=== PATIENT | male | born 1965 | race Caucasian/White ===

== ENCOUNTER 2016-08-24 07:48 | Inpatient (IN) | payer MEDICAID ==
[~2016-08-24] VITALS: Ht 177.8 cm; Wt 172.0 kg
[~2016-08-24 07:48] MED LIST: ASPI81TA10; ATEN50TA OR; CEPH-37 PO; FAMO-12; FURO20TA3; FURO40TA OR; GABA300C8 PO; GEMF600T3; GLIP2.5T28 PO; INSLANTI; INSUINJ; LOSA100T27; METF-316 OR; NOR10T PO; POTA8TAB2
[2016-08-24 09:03] LABS: Basophils # (auto) 0 uL; Basophils % (auto) 0.2 % (0.0-2.0); Eosinophils # (auto) 0.1 uL; Eosinophils % (auto) 0.9 % (0.0-7.0); Hematocrit 41.2 % (41.0-53.0); Hemoglobin 13.1 g/dL (13.5-17.5); Lymphocytes # (auto) 1.9 uL; Lymphocytes % (auto) 15.7 % (10.0-50.0); Mean Corpuscular Hemoglobin 27.2 pg (28.0-32.0); Mean Corpuscular Hgb Conc. 31.8 g/dL (32.0-36.0); Mean Corpuscular Volume 85.7 fL (80.0-100.0); Mean Platelet Volume 10.3 fL (7.4-10.4); Monocytes # (auto) 0.8 uL; Monocytes % (auto) 6.3 % (0.0-12.0); Neutrophils # (auto) 9.4 uL; Neutrophils % (auto) 76.9 % (37.0-80.0); Platelet Count (auto) 223 10^3/uL (140-450); White Blood Cell 12.3 10^3/uL (4.4-10.8)
[2016-08-24] MEDS ORDERED: SODIUM CHLORIDE 0.9% 250 ML IV ONE (09:10)
[2016-08-24] MEDS ORDERED: PROMETHAZINE HCL 25 MG/ML 1ML IV ONE (09:15)
[2016-08-24] MEDS ORDERED: NALBUPHINE HCL 10 MG/1ml INJECTION IV ONE (09:15)
[2016-08-24 09:24] LABS: Albumin 2.9 g/dL (3.4-5.0); BUN/Creatinine Ratio 20.6; Calcium 8.7 mg/dL (8.5-10.1); Magnesium 2.1 mg/dL (1.6-2.6); Potassium 4.3 mmol/L (3.5-5.1)
[2016-08-24 09:28] LABS: Bilirubin, Total 0.4 mg/dL (0.2-1.0); Total Protein 6.8 g/dL (6.4-8.2)
[2016-08-24] MEDS ORDERED: SODIUM BICARBONATE 8.4 % INJ 50ML VIAL IV ONE ×3 (09:45→10:00)
[2016-08-24 09:47] LABS: Urine RBC None Seen /hpf (0 - 3)
[2016-08-24 10:10] LABS: Urine Bilirubin Negative (Negative); Urine Blood Negative /uL (Negative); Urine Color Yellow (Yellow); Urine Ketone Negative (Negative); Urine Nitrite Negative (Negative); Urine Urobilinogen Normal (Negative); Urine pH 5.5 (5.0-8.0)
[2016-08-24 10:15] LABS: Urine Glucose 4+ mg/dL (Normal)
[2016-08-24 10:48] LABS: INR 0.99 (0.9-1.15); Prothrombin Time 10.2 sec (9.37-12.3)
[2016-08-24 11:00] LABS: B-Type Natriuretic Peptide 29.21 pg/mL (0-100)
[2016-08-24 11:04] LABS: Temperature: 22.7 C (20.0-25.0)
[2016-08-24] MEDS ORDERED: SODIUM CHLORIDE 0.9% 1,000 ML IV ONE (11:49)
[2016-08-24] MEDS ORDERED: GABAPENTIN 300 MG CAP PO ONE (12:00)
[2016-08-24] MEDS ORDERED: InsuLIN REG 1unit/0.01ml Soln (100units/ml) IV ONE (12:00)
[2016-08-24] MEDS ORDERED: DEXTROSE (50%) 50ML SYRG IV PRN (12:45)
[2016-08-24] MEDS ORDERED: cefTRIAXone 1GM/50ML D5W 50 ML IV ONE (12:45)
[2016-08-24] MEDS ORDERED: MORPHINE SULF INJ 2 MG/ML SYRINGE 1ML IV PRN ×2 (13:00)
[2016-08-24] MEDS ORDERED: ONDANSETRON HCL 4 MG/2 ML VIAL IV PRN (13:00)
[2016-08-24] MEDS ORDERED: ACETAMINOPHEN 325 MG TAB PO PRN (13:00)
[2016-08-24] MEDS ORDERED: NITROGLYCERIN 0.4 MG SL TAB SL PRN ×2 (13:00)
[2016-08-24] MEDS ORDERED: LORazepam 0.5 MG TAB PO PRN (13:00)
[2016-08-24] MEDS ORDERED: ZOLPIDEM TARTRATE 5 MG TAB PO PRN (13:00)
[2016-08-24] MEDS ORDERED: DOCUSATE SOD 100 MG CAP PO ONE (13:15)
[2016-08-24] MEDS ORDERED: GEMFIBROZIL 600 MG TAB PO ONE (13:15)
[2016-08-24] MEDS ORDERED: ASPirin-EC 81 mg tab PO ONE (13:15)
[2016-08-24] MEDS ORDERED: FUROSEMIDE 40 MG TAB PO ONE (13:15)
[2016-08-24] MEDS ORDERED: ATENOLOL 25 MG TAB PO ONE (13:15)
[2016-08-24] MEDS ORDERED: CLOPIDOGREL BISULFATE 75 MG TAB PO ONE (13:15)
[2016-08-24] MEDS ORDERED: glipiZIDE 5 MG TAB PO ONE (13:15)
[2016-08-24] MEDS: SODIUM CHLOR 0.9% PF (SALINE LOCK) 10ML VIAL IV SCH ×2 (13:41→21:37)
[2016-08-24] MEDS: CLINDAMYCIN 300MG IV 50 ML IV SCH ×2 (13:52→21:37)
[2016-08-24 14:52] VITALS: BP 150/78
[2016-08-24 16:48] VITALS: BP 130/75
[2016-08-24] MEDS: ACCU-CHEK COMFORT CURVE STRIP VI SCH ×2 (17:46→21:46)
[2016-08-24] MEDS: InsuLIN REG 1unit/0.01ml Soln (100units/ml) SC SCH ×2 (18:10→21:17)
[2016-08-24 20:00] VITALS: BP 146/92
[2016-08-24] MEDS: INSULIN DETEMIR(LEVEMIR) 1unit/0.01ml Soln (100units/ml) SC SCH (21:21)
[2016-08-24 21:35] VITALS: BP 127/75
[2016-08-24] MEDS: ATORVASTATIN 20 MG TAB PO SCH (21:37)
[2016-08-24] MEDS: ATENOLOL 25 MG TAB PO SCH (21:38)
[2016-08-24] MEDS: GABAPENTIN 300 MG CAP PO SCH (21:38)
[2016-08-24] MEDS: GEMFIBROZIL 600 MG TAB PO SCH (21:39)
[2016-08-24] MEDS ORDERED: ENALAPRIL MALEATE 2.5 MG TAB PO SCH (22:00)
[2016-08-24] MEDS: HYDROcodone-ACET 10/325MG TAB PO PRN (22:45)
[2016-08-25] VITALS (7 sets, daily range): BP systolic 102–144; BP diastolic 66–78
[2016-08-25 06:25] LABS: Basophils # (auto) 0 uL; Basophils % (auto) 0.4 % (0.0-2.0); Eosinophils # (auto) 0.2 uL; Eosinophils % (auto) 1.9 % (0.0-7.0); Hematocrit 41.4 % (41.0-53.0); Hemoglobin 13.5 g/dL (13.5-17.5); Lymphocytes # (auto) 2.2 uL; Lymphocytes % (auto) 20.7 % (10.0-50.0); Mean Corpuscular Hemoglobin 27.4 pg (28.0-32.0); Mean Corpuscular Hgb Conc. 32.5 g/dL (32.0-36.0); Mean Corpuscular Volume 84.4 fL (80.0-100.0); Monocytes # (auto) 0.9 uL; Monocytes % (auto) 7.9 % (0.0-12.0); Neutrophils # (auto) 7.5 uL; Neutrophils % (auto) 69.1 % (37.0-80.0); Platelet Count (auto) 236 10^3/uL (140-450); White Blood Cell 10.8 10^3/uL (4.4-10.8)
[2016-08-25] MEDS: CLINDAMYCIN 300MG IV 50 ML IV SCH ×3 (06:38→21:32)
[2016-08-25] MEDS: SODIUM CHLOR 0.9% PF (SALINE LOCK) 10ML VIAL IV SCH ×3 (06:39→21:54)
[2016-08-25] MEDS: glipiZIDE 5 MG TAB PO SCH (06:42)
[2016-08-25] MEDS: HYDROcodone-ACET 10/325MG TAB PO PRN ×3 (06:44→20:46)
[2016-08-25] MEDS: InsuLIN REG 1unit/0.01ml Soln (100units/ml) SC SCH ×4 (06:52→22:15)
[2016-08-25 06:53] LABS: Potassium 4.1 mmol/L (3.5-5.1)
[2016-08-25] MEDS: INSULIN DETEMIR(LEVEMIR) 1unit/0.01ml Soln (100units/ml) SC SCH ×2 (06:58→22:14)
[2016-08-25] MEDS: ACCU-CHEK COMFORT CURVE STRIP VI SCH ×4 (06:58→21:59)
[2016-08-25 07:03] LABS: Albumin 2.7 g/dL (3.4-5.0); BUN/Creatinine Ratio 18.6; Calcium 8.4 mg/dL (8.5-10.1); Magnesium 2.2 mg/dL (1.6-2.6)
[2016-08-25 07:06] LABS: Bilirubin, Total 0.6 mg/dL (0.2-1.0); Total Protein 6.9 g/dL (6.4-8.2)
[2016-08-25] MEDS: cefTRIAXone 1GM/50ML D5W 50 ML IV SCH (10:45)
[2016-08-25] MEDS: GEMFIBROZIL 600 MG TAB PO SCH ×2 (10:45→21:31)
[2016-08-25] MEDS: GABAPENTIN 300 MG CAP PO SCH ×2 (10:46→21:31)
[2016-08-25] MEDS: DOCUSATE SOD 100 MG CAP PO SCH (10:46)
[2016-08-25] MEDS: LOSARTAN POTASSIUM 50 MG TAB PO SCH (10:46)
[2016-08-25] MEDS: POTASSIUM CHLORIDE 8 MEQ TAB PO SCH (10:46)
[2016-08-25] MEDS: ASPirin-EC 81 mg tab PO SCH (10:47)
[2016-08-25] MEDS: ATENOLOL 25 MG TAB PO SCH ×2 (10:47→21:59)
[2016-08-25] MEDS: FUROSEMIDE 40 MG TAB PO SCH (10:47)
[2016-08-25] MEDS: CLOPIDOGREL BISULFATE 75 MG TAB PO SCH (10:47)
[2016-08-25] MEDS: ATORVASTATIN 20 MG TAB PO SCH (21:32)
[2016-08-26] VITALS (10 sets, daily range): BP systolic 0–154; BP diastolic 0–81
[2016-08-26] MEDS: CLINDAMYCIN 300MG IV 50 ML IV SCH ×3 (05:06→21:18)
[2016-08-26] MEDS: SODIUM CHLOR 0.9% PF (SALINE LOCK) 10ML VIAL IV SCH ×3 (05:06→21:18)
[2016-08-26] MEDS: ACCU-CHEK COMFORT CURVE STRIP VI SCH ×4 (06:01→23:07)
[2016-08-26] MEDS: glipiZIDE 5 MG TAB PO SCH (06:09)
[2016-08-26] MEDS: INSULIN DETEMIR(LEVEMIR) 1unit/0.01ml Soln (100units/ml) SC SCH ×2 (06:28→23:18)
[2016-08-26] MEDS: InsuLIN REG 1unit/0.01ml Soln (100units/ml) SC SCH ×4 (06:28→23:19)
[2016-08-26] MEDS ORDERED: fentaNYL CITRATE 100 MCG/2 ML VL ONE (08:23)
[2016-08-26] MEDS ORDERED: MIDAZOLAM HCL 1MG/1ML-2 ML VIAL ONE (08:23)
[2016-08-26] MEDS ORDERED: SODIUM CHL 0.9% 0 ML ONE (08:24)
[2016-08-26] MEDS ORDERED: ANGIOMAX 250 MG VIAL IV ONE (08:24)
[2016-08-26] MEDS ORDERED: IOHEXOL 350 MG/ML 100ML IJ ONE (08:26)
[2016-08-26] MEDS ORDERED: LIDOCAINE 2%HCL (LOCAL ANESTH.) INJ 20ML MDV ONE (08:26)
[2016-08-26] MEDS: GABAPENTIN 300 MG CAP PO SCH ×2 (12:23→21:18)
[2016-08-26] MEDS: LOSARTAN POTASSIUM 50 MG TAB PO SCH (12:23)
[2016-08-26] MEDS: POTASSIUM CHLORIDE 8 MEQ TAB PO SCH (12:23)
[2016-08-26] MEDS: ASPirin-EC 81 mg tab PO SCH (12:23)
[2016-08-26] MEDS: cefTRIAXone 1GM/50ML D5W 50 ML IV SCH (12:23)
[2016-08-26] MEDS: CLOPIDOGREL BISULFATE 75 MG TAB PO SCH (12:24)
[2016-08-26] MEDS: DOCUSATE SOD 100 MG CAP PO SCH (12:24)
[2016-08-26] MEDS: FUROSEMIDE 40 MG TAB PO SCH (12:24)
[2016-08-26] MEDS: GEMFIBROZIL 600 MG TAB PO SCH ×2 (12:24→21:17)
[2016-08-26] MEDS: ATENOLOL 25 MG TAB PO SCH ×2 (12:24→21:18)
[2016-08-26] MEDS ORDERED: MUPIROCIN 2% OINT 22GM TOP ONE (14:45)
[2016-08-26] MEDS ORDERED: INSULIN DETEMIR(LEVEMIR) 1unit/0.01ml Soln (100units/ml) SC ONE (18:00)
[2016-08-26] MEDS ORDERED: InsuLIN REG 1unit/0.01ml Soln (100units/ml) IV ONE (18:00)
[2016-08-26] MEDS ORDERED: DEXTROSE (50%) 50ML SYRG IV PRN (19:45)
[2016-08-26] MEDS: HYDROcodone-ACET 10/325MG TAB PO PRN (20:02)
[2016-08-26] MEDS: SODIUM CHLORIDE 0.9% 1,000 ML IV SCH (21:17)
[2016-08-26] MEDS: ATORVASTATIN 20 MG TAB PO SCH (21:18)
[2016-08-26] MEDS: MUPIROCIN 2% OINT 22GM TOP SCH (23:19)
[2016-08-27] VITALS (7 sets, daily range): BP systolic 78–138; BP diastolic 36–76
[2016-08-27] MEDS: SODIUM CHLOR 0.9% PF (SALINE LOCK) 10ML VIAL IV SCH ×3 (05:49→21:29)
[2016-08-27] MEDS: CLINDAMYCIN 300MG IV 50 ML IV SCH ×3 (05:50→21:29)
[2016-08-27] MEDS: ACCU-CHEK COMFORT CURVE STRIP VI SCH ×4 (05:50→23:17)
[2016-08-27] MEDS: InsuLIN REG 1unit/0.01ml Soln (100units/ml) SC SCH ×4 (06:10→23:27)
[2016-08-27 06:22] LABS: Basophils # (auto) 0 uL; Basophils % (auto) 0.5 % (0.0-2.0); Eosinophils # (auto) 0.3 uL; Eosinophils % (auto) 3.8 % (0.0-7.0); Hematocrit 40.4 % (41.0-53.0); Hemoglobin 12.8 g/dL (13.5-17.5); Lymphocytes # (auto) 2.1 uL; Mean Corpuscular Hemoglobin 27.3 pg (28.0-32.0); Mean Corpuscular Hgb Conc. 31.6 g/dL (32.0-36.0); Mean Corpuscular Volume 86.4 fL (80.0-100.0); Mean Platelet Volume 9.8 fL (7.4-10.4); Monocytes # (auto) 0.8 uL; Monocytes % (auto) 9.1 % (0.0-12.0); Neutrophils # (auto) 5.6 uL; Neutrophils % (auto) 62.6 % (37.0-80.0); Platelet Count (auto) 264 10^3/uL (140-450); White Blood Cell 8.9 10^3/uL (4.4-10.8)
[2016-08-27] MEDS: glipiZIDE 5 MG TAB PO SCH ×2 (06:35→18:29)
[2016-08-27] MEDS: HYDROcodone-ACET 10/325MG TAB PO PRN ×3 (06:48→21:29)
[2016-08-27] MEDS: INSULIN DETEMIR(LEVEMIR) 1unit/0.01ml Soln (100units/ml) SC SCH ×2 (06:54→23:20)
[2016-08-27 07:01] LABS: Albumin 2.5 g/dL (3.4-5.0); BUN/Creatinine Ratio 16.4; Bilirubin, Total 0.3 mg/dL (0.2-1.0); Calcium 8.7 mg/dL (8.5-10.1); Potassium 3.7 mmol/L (3.5-5.1); Total Protein 6.6 g/dL (6.4-8.2)
[2016-08-27] MEDS ORDERED: glipiZIDE 5 MG TAB PO ONE (09:15)
[2016-08-27] MEDS: POTASSIUM CHLORIDE 8 MEQ TAB PO SCH (09:31)
[2016-08-27] MEDS: GEMFIBROZIL 600 MG TAB PO SCH ×2 (09:31→21:32)
[2016-08-27] MEDS: ASPirin-EC 81 mg tab PO SCH (09:31)
[2016-08-27] MEDS: DOCUSATE SOD 100 MG CAP PO SCH (09:31)
[2016-08-27] MEDS: CLOPIDOGREL BISULFATE 75 MG TAB PO SCH (09:32)
[2016-08-27] MEDS: GABAPENTIN 300 MG CAP PO SCH ×2 (09:32→21:29)
[2016-08-27] MEDS: cefTRIAXone 1GM/50ML D5W 50 ML IV SCH (09:33)
[2016-08-27] MEDS: MUPIROCIN 2% OINT 22GM TOP SCH ×2 (09:38→21:30)
[2016-08-27] MEDS: LOSARTAN POTASSIUM 50 MG TAB PO SCH (10:00)
[2016-08-27] MEDS: FUROSEMIDE 40 MG TAB PO SCH (10:00)
[2016-08-27] MEDS: ATENOLOL 25 MG TAB PO SCH ×2 (10:00→21:30)
[2016-08-27] MEDS: SODIUM CHLORIDE 0.9% 1,000 ML IV SCH (10:33)
[2016-08-27] MEDS ORDERED: fentaNYL CITRATE 100 MCG/2 ML VL ONE (13:48)
[2016-08-27] MEDS ORDERED: GELATIN 1 SPONGE SIZE 50 TOP ONE (15:31)
[2016-08-27] MEDS: ATORVASTATIN 20 MG TAB PO SCH (21:29)
[2016-08-28] MEDS: SODIUM CHLORIDE 0.9% 1,000 ML IV SCH (01:11)
[2016-08-28 04:59] VITALS: BP 115/59
[2016-08-28] MEDS: SODIUM CHLOR 0.9% PF (SALINE LOCK) 10ML VIAL IV SCH (05:06)
[2016-08-28] MEDS: ACCU-CHEK COMFORT CURVE STRIP VI SCH (05:06)
[2016-08-28] MEDS: CLINDAMYCIN 300MG IV 50 ML IV SCH (05:06)
[2016-08-28] MEDS: InsuLIN REG 1unit/0.01ml Soln (100units/ml) SC SCH (05:30)
[2016-08-28] MEDS: INSULIN DETEMIR(LEVEMIR) 1unit/0.01ml Soln (100units/ml) SC SCH (06:09)
[2016-08-28] MEDS: glipiZIDE 5 MG TAB PO SCH (06:24)
[2016-08-28 07:40] LABS: Basophils # (auto) 0 uL; Basophils % (auto) 0.6 % (0.0-2.0); Eosinophils # (auto) 0.3 uL; Hematocrit 40.7 % (41.0-53.0); Hemoglobin 12.9 g/dL (13.5-17.5); Lymphocytes # (auto) 2.1 uL; Lymphocytes % (auto) 31.1 % (10.0-50.0); Mean Corpuscular Hemoglobin 27.3 pg (28.0-32.0); Mean Corpuscular Hgb Conc. 31.6 g/dL (32.0-36.0); Mean Corpuscular Volume 86.3 fL (80.0-100.0); Mean Platelet Volume 9.2 fL (7.4-10.4); Monocytes # (auto) 0.6 uL; Monocytes % (auto) 8.3 % (0.0-12.0); Neutrophils # (auto) 3.7 uL; Platelet Count (auto) 274 10^3/uL (140-450); Red Cell Distribution Width 13.9 % (11.6-16.0); White Blood Cell 6.8 10^3/uL (4.4-10.8)
[2016-08-28 08:00] VITALS: BP 110/54
[2016-08-28 08:54] LABS: Albumin 2.6 g/dL (3.4-5.0); BUN/Creatinine Ratio 13.6; Bilirubin, Total 0.3 mg/dL (0.2-1.0); Calcium 8.8 mg/dL (8.5-10.1); Total Protein 6.7 g/dL (6.4-8.2)
[2016-08-28 09:32] VITALS: BP 115/59
== END 2016-08-28 11:25 | disposition home or self-care (01) | DRG 192 ==
LOC: EDBD 07:48 → ER 07:48 → TELE 07:49 → TELE-EAST 14:04
PROVIDERS: ADMIT Internal Medicine; ATTEND Internal Medicine
PROC: 5A09457 Assistance with Respiratory Ventilation, 24-96 Consecutive Hours, Continuous Positive Airway Pressure (ICD-10-PCS; principal; 2016-08-26)
PROC: 4A023N7 Measurement of Cardiac Sampling and Pressure, Left Heart, Percutaneous Approach (ICD-10-PCS; 2016-08-26)
PROC: B2111ZZ Fluoroscopy of Multiple Coronary Arteries using Low Osmolar Contrast (ICD-10-PCS; 2016-08-26)
PROC: B2151ZZ Fluoroscopy of Left Heart using Low Osmolar Contrast (ICD-10-PCS; 2016-08-26)
PROC: 0W9F30Z Drainage of Abdominal Wall with Drainage Device, Percutaneous Approach (ICD-10-PCS; 2016-08-27)
DX: I25.119 Atherosclerotic heart disease of native coronary artery with unspecified angina pectoris (principal); E43 Unspecified severe protein-calorie malnutrition; I42.9 Cardiomyopathy, unspecified; I50.42 Chronic combined systolic (congestive) and diastolic (congestive) heart failure; E10.21 Type 1 diabetes mellitus with diabetic nephropathy; Z68.43 Body mass index [BMI] 50.0-59.9, adult; K43.9 Ventral hernia without obstruction or gangrene; L02.211 Cutaneous abscess of abdominal wall; F15.10 Other stimulant abuse, uncomplicated; F17.210 Nicotine dependence, cigarettes, uncomplicated; E10.22 Type 1 diabetes mellitus with diabetic chronic kidney disease; J44.9 Chronic obstructive pulmonary disease, unspecified; I12.9 Hypertensive chronic kidney disease with stage 1 through stage 4 chronic kidney disease, or unspecified chronic kidney disease; E66.01 Morbid (severe) obesity due to excess calories; N18.3 Chronic kidney disease, stage 3 (moderate); E87.1 Hypo-osmolality and hyponatremia; E10.65 Type 1 diabetes mellitus with hyperglycemia; E10.43 Type 1 diabetes mellitus with diabetic autonomic (poly)neuropathy; Z90.5 Acquired absence of kidney; Z85.528 Personal history of other malignant neoplasm of kidney; I25.2 Old myocardial infarction; Z88.5 Allergy status to narcotic agent; Z90.49 Acquired absence of other specified parts of digestive tract; Z98.890 Other specified postprocedural states; Z90.89 Acquired absence of other organs; Z82.49 Family history of ischemic heart disease and other diseases of the circulatory system; Z83.3 Family history of diabetes mellitus; Z82.3 Family history of stroke; Z80.9 Family history of malignant neoplasm, unspecified; Z79.4 Long term (current) use of insulin; Z91.19 Patient's noncompliance with other medical treatment and regimen
CPT/HCPCS: 36415; 71010; 76705; 76942; 80053; 80061; 81001; 82962; 83036; 83735; 83880; 84443; 84484; 85025; 85379; 85610; 85730; 87040; 87070; 87081; 87205; 93005; 93306; 93458; 93970; 94660; 96361; 96365; 96375; G0434; J0696; J1815; J2250; J3490

== ENCOUNTER 2016-12-01 10:00 | Inpatient (IN) | payer MEDICAID ==
[~2016-12-01] VITALS: Ht 182.9 cm; Wt 158.8 kg
[2016-12-01] MEDS ORDERED: HYDROmorphone HCL 2 MG/ML VL IV ONE (10:15)
[2016-12-01] MEDS ORDERED: ONDANSETRON HCL 4 MG/2 ML VIAL IV ONE (10:15)
[2016-12-01 10:50] LABS: Basophils # (auto) 0 uL; Basophils % (auto) 0.4 % (0.0-2.0); Eosinophils # (auto) 0.3 uL; Eosinophils % (auto) 2.9 % (0.0-7.0); Hemoglobin 14.1 g/dL (13.5-17.5); Lymphocytes # (auto) 1.2 uL; Lymphocytes % (auto) 10.2 % (10.0-50.0); Mean Corpuscular Hemoglobin 29.1 pg (28.0-32.0); Mean Corpuscular Hgb Conc. 33.7 g/dL (32.0-36.0); Mean Corpuscular Volume 86.5 fL (80.0-100.0); Mean Platelet Volume 9.5 fL (7.4-10.4); Monocytes # (auto) 0.6 uL; Monocytes % (auto) 4.8 % (0.0-12.0); Neutrophils # (auto) 9.7 uL; Neutrophils % (auto) 81.7 % (37.0-80.0); Platelet Count (auto) 248 10^3/uL (140-450); Red Cell Distribution Width 14.7 % (11.6-16.0); White Blood Cell 11.9 10^3/uL (4.4-10.8)
[2016-12-01 11:03] LABS: INR 0.97 (0.9-1.15); Partial Thromboplastin Time 28.7 sec (22.64-33.71); Prothrombin Time 10.5 sec (9.37-12.3)
[2016-12-01 11:08] LABS: Albumin 3.5 g/dL (3.4-5.0); BUN/Creatinine Ratio 18.4; Calcium 9.1 mg/dL (8.5-10.1); Potassium 4.3 mmol/L (3.5-5.1)
[2016-12-01 11:11] LABS: Bilirubin, Total 0.3 mg/dL (0.2-1.0); Total Protein 7.4 g/dL (6.4-8.2)
[2016-12-01 15:34] LABS: Urine Bilirubin Negative (Negative); Urine Color Yellow (Yellow); Urine Glucose Normal (Normal); Urine Ketone Negative (Negative); Urine Nitrite Negative (Negative); Urine RBC 57 /hpf (0 - 3); Urine Urobilinogen Normal (Negative)
[2016-12-01 15:35] LABS: Urine Blood 2+ /uL (Negative)
[2016-12-01] MEDS ORDERED: cefTRIAXone 1GM/50ML D5W 50 ML IV ONE (18:00)
[2016-12-01] MEDS ORDERED: ACETAMINOPHEN 325 MG TAB PO PRN (18:00)
[2016-12-01] MEDS ORDERED: HYDROcodone-ACET 5/325MG TAB PO PRN (18:00)
[2016-12-01] MEDS ORDERED: ONDANSETRON HCL 4 MG/2 ML VIAL IV PRN (18:00)
[2016-12-01] MEDS ORDERED: DOCUSATE SOD 100 MG CAP PO PRN (18:00)
[2016-12-01] MEDS ORDERED: DEXTROSE (50%) 50ML SYRG IV PRN (18:00)
[2016-12-01] MEDS ORDERED: TEMAZEPAM 15 MG CAP PO PRN (18:00)
[2016-12-01] MEDS ORDERED: MULTIPLE VITAMIN TAB PO ONE (18:15)
[2016-12-01] MEDS ORDERED: FAMOTIDINE 20 MG TAB PO ONE (18:15)
[2016-12-01] MEDS: HYDROmorphone HCL 2 MG/ML VL IV PRN (18:15)
[2016-12-01 22:00] VITALS: BP 143/80
[2016-12-01] MEDS: SODIUM CHLOR 0.9% PF (SALINE LOCK) 10ML VIAL IV SCH (22:12)
[2016-12-01] MEDS: FAMOTIDINE 20 MG TAB PO SCH (22:13)
[2016-12-01] MEDS: InsuLIN REG 1unit/0.01ml Soln (100units/ml) SC SCH (22:13)
[2016-12-01] MEDS: INSULIN DETEMIR(LEVEMIR) 1unit/0.01ml Soln (100units/ml) SC SCH (22:14)
[2016-12-01] MEDS: ACCU-CHEK COMFORT CURVE STRIP VI SCH (22:14)
[2016-12-01 23:32] VITALS: BP 143/80
[2016-12-02] MEDS: HYDROmorphone HCL 2 MG/ML VL IV PRN ×3 (01:33→09:47)
[2016-12-02 02:47] VITALS: BP 143/80
[2016-12-02 05:00] VITALS: BP 143/63
[2016-12-02] MEDS: SODIUM CHLOR 0.9% PF (SALINE LOCK) 10ML VIAL IV SCH ×3 (05:35→22:20)
[2016-12-02] MEDS: ACCU-CHEK COMFORT CURVE STRIP VI SCH ×4 (06:11→22:00)
[2016-12-02] MEDS: InsuLIN REG 1unit/0.01ml Soln (100units/ml) SC SCH ×4 (06:11→22:00)
[2016-12-02 06:38] LABS: Basophils # (auto) 0.1 uL; Basophils % (auto) 0.5 % (0.0-2.0); Eosinophils # (auto) 0.1 uL; Eosinophils % (auto) 1.2 % (0.0-7.0); Hemoglobin 13.8 g/dL (13.5-17.5); Lymphocytes # (auto) 1.6 uL; Mean Corpuscular Hgb Conc. 33.6 g/dL (32.0-36.0); Mean Corpuscular Volume 86.4 fL (80.0-100.0); Mean Platelet Volume 9.2 fL (7.4-10.4); Monocytes # (auto) 1.1 uL; Neutrophils # (auto) 9.5 uL; Neutrophils % (auto) 76.3 % (37.0-80.0); Platelet Count (auto) 245 10^3/uL (140-450); Red Cell Distribution Width 14.8 % (11.6-16.0); White Blood Cell 12.5 10^3/uL (4.4-10.8)
[2016-12-02 06:58] LABS: Albumin 3.1 g/dL (3.4-5.0)
[2016-12-02 07:00] LABS: BUN/Creatinine Ratio 20.2; Total Protein 7.1 g/dL (6.4-8.2)
[2016-12-02 07:09] LABS: Bilirubin, Total 0.7 mg/dL (0.2-1.0)
[2016-12-02 08:43] VITALS: BP 128/63
[2016-12-02] MEDS: cefTRIAXone 1GM/50ML D5W 50 ML IV SCH (09:47)
[2016-12-02] MEDS: FAMOTIDINE 20 MG TAB PO SCH ×2 (09:47→22:20)
[2016-12-02] MEDS: MULTIPLE VITAMIN TAB PO SCH (09:48)
[2016-12-02] MEDS: INSULIN DETEMIR(LEVEMIR) 1unit/0.01ml Soln (100units/ml) SC SCH ×2 (09:56→22:00)
[2016-12-02 12:31] VITALS: BP 157/96
[2016-12-02] MEDS ORDERED: HYDROmorphone HCL 2 MG/ML VL IV PRN (13:15)
[2016-12-02] MEDS: cloNIDine HCL 0.1 MG TAB PO PRN (16:35)
[2016-12-02 16:37] VITALS: BP 163/97
[2016-12-02 22:00] VITALS: BP 151/79
[2016-12-03 05:52] VITALS: BP 141/83
[2016-12-03] MEDS: ACCU-CHEK COMFORT CURVE STRIP VI SCH ×4 (06:01→22:00)
[2016-12-03] MEDS: SODIUM CHLOR 0.9% PF (SALINE LOCK) 10ML VIAL IV SCH ×3 (06:01→22:17)
[2016-12-03] MEDS: InsuLIN REG 1unit/0.01ml Soln (100units/ml) SC SCH ×4 (06:01→22:00)
[2016-12-03 07:14] LABS: Basophils # (auto) 0 uL; Basophils % (auto) 0.3 % (0.0-2.0); Eosinophils # (auto) 0.1 uL; Eosinophils % (auto) 0.8 % (0.0-7.0); Hematocrit 40.2 % (41.0-53.0); Hemoglobin 13.7 g/dL (13.5-17.5); Lymphocytes # (auto) 1.5 uL; Mean Corpuscular Hemoglobin 29.3 pg (28.0-32.0); Mean Corpuscular Hgb Conc. 34.1 g/dL (32.0-36.0); Mean Corpuscular Volume 86.1 fL (80.0-100.0); Mean Platelet Volume 9.2 fL (7.4-10.4); Monocytes # (auto) 0.8 uL; Monocytes % (auto) 6.9 % (0.0-12.0); Neutrophils # (auto) 8.9 uL; Platelet Count (auto) 239 10^3/uL (140-450); Red Cell Distribution Width 14.5 % (11.6-16.0); White Blood Cell 11.3 10^3/uL (4.4-10.8)
[2016-12-03 07:39] VITALS: BP 150/86
[2016-12-03 07:41] LABS: Albumin 2.5 g/dL (3.4-5.0); Bilirubin, Total 0.7 mg/dL (0.2-1.0); Calcium 8.9 mg/dL (8.5-10.1); Potassium 3.9 mmol/L (3.5-5.1); Total Protein 7.3 g/dL (6.4-8.2)
[2016-12-03] MEDS: cefTRIAXone 1GM/50ML D5W 50 ML IV SCH (09:14)
[2016-12-03] MEDS: MULTIPLE VITAMIN TAB PO SCH (09:37)
[2016-12-03] MEDS: FAMOTIDINE 20 MG TAB PO SCH ×2 (09:37→22:17)
[2016-12-03] MEDS: INSULIN DETEMIR(LEVEMIR) 1unit/0.01ml Soln (100units/ml) SC SCH ×2 (09:38→22:00)
[2016-12-03] MEDS: CLINDAMYCIN 300MG IV 50 ML IV SCH ×2 (11:22→18:29)
[2016-12-03] MEDS: MUPIROCIN 2% OINT 22GM EACHNOSTRI SCH ×2 (11:22→22:33)
[2016-12-03 12:25] VITALS: BP 136/68
[2016-12-03] MEDS: cloNIDine HCL 0.1 MG TAB PO PRN (16:26)
[2016-12-03] MEDS: HYDROmorphone HCL 2 MG/ML VL IV PRN (16:27)
[2016-12-03 16:34] VITALS: BP 164/83
[2016-12-03 22:00] VITALS: BP 139/79
[2016-12-04] MEDS: CLINDAMYCIN 300MG IV 50 ML IV SCH ×2 (01:36→10:54)
[2016-12-04] MEDS: HYDROmorphone HCL 2 MG/ML VL IV PRN ×3 (01:56→13:14)
[2016-12-04] MEDS: SODIUM CHLOR 0.9% PF (SALINE LOCK) 10ML VIAL IV SCH (05:42)
[2016-12-04 05:54] VITALS: BP 153/83
[2016-12-04] MEDS: InsuLIN REG 1unit/0.01ml Soln (100units/ml) SC SCH ×2 (06:04→12:26)
[2016-12-04] MEDS: ACCU-CHEK COMFORT CURVE STRIP VI SCH ×2 (06:05→12:26)
[2016-12-04 07:17] VITALS: BP 153/83
[2016-12-04 08:00] VITALS: BP 140/89
[2016-12-04] MEDS: cefTRIAXone 1GM/50ML D5W 50 ML IV SCH (09:01)
[2016-12-04] MEDS: FAMOTIDINE 20 MG TAB PO SCH (10:54)
[2016-12-04] MEDS: MULTIPLE VITAMIN TAB PO SCH (10:54)
[2016-12-04] MEDS: MUPIROCIN 2% OINT 22GM EACHNOSTRI SCH (10:54)
[2016-12-04] MEDS: INSULIN DETEMIR(LEVEMIR) 1unit/0.01ml Soln (100units/ml) SC SCH (11:32)
[2016-12-04 13:23] VITALS: BP 140/78
[2016-12-04] MEDS: cloNIDine HCL 0.1 MG TAB PO PRN (13:33)
== END 2016-12-04 13:57 | disposition home or self-care (01) | DRG 380 ==
LOC: ER 10:22 → TELE 10:23 → EAST 21:32
PROVIDERS: ADMIT Internal Medicine; ATTEND Internal Medicine
PROC: 5A09457 Assistance with Respiratory Ventilation, 24-96 Consecutive Hours, Continuous Positive Airway Pressure (ICD-10-PCS; principal; 2016-12-01)
DX: E10.621 Type 1 diabetes mellitus with foot ulcer (principal); L97.529 Non-pressure chronic ulcer of other part of left foot with unspecified severity; L97.519 Non-pressure chronic ulcer of other part of right foot with unspecified severity; E10.21 Type 1 diabetes mellitus with diabetic nephropathy; I13.0 Hypertensive heart and chronic kidney disease with heart failure and stage 1 through stage 4 chronic kidney disease, or unspecified chronic kidney disease; I50.42 Chronic combined systolic (congestive) and diastolic (congestive) heart failure; S89.91XA Unspecified injury of right lower leg, initial encounter; E66.01 Morbid (severe) obesity due to excess calories; E10.22 Type 1 diabetes mellitus with diabetic chronic kidney disease; M10.9 Gout, unspecified; N18.2 Chronic kidney disease, stage 2 (mild); J44.9 Chronic obstructive pulmonary disease, unspecified; F17.210 Nicotine dependence, cigarettes, uncomplicated; I25.10 Atherosclerotic heart disease of native coronary artery without angina pectoris; N39.0 Urinary tract infection, site not specified; Z68.42 Body mass index [BMI] 45.0-49.9, adult; I25.2 Old myocardial infarction; Z79.4 Long term (current) use of insulin; Z83.3 Family history of diabetes mellitus; Z82.49 Family history of ischemic heart disease and other diseases of the circulatory system; Z80.9 Family history of malignant neoplasm, unspecified; Z81.8 Family history of other mental and behavioral disorders; Z85.528 Personal history of other malignant neoplasm of kidney; Z90.5 Acquired absence of kidney; Z90.49 Acquired absence of other specified parts of digestive tract; Z90.89 Acquired absence of other organs; Z82.3 Family history of stroke; Z83.6 Family history of other diseases of the respiratory system; X50.1XXA Overexertion from prolonged static or awkward postures, initial encounter; Y93.89 Activity, other specified; Y92.098 Other place in other non-institutional residence as the place of occurrence of the external cause; Y99.8 Other external cause status
CPT/HCPCS: 36415; 71010; 73560; 73630; 73700; 80053; 81001; 82962; 83036; 83605; 85025; 85610; 85730; 87081; 87086; 87088; 87186; 94660; 94761; 96365; 96375; J0696; J1815; J2405; J3490

== ENCOUNTER 2016-12-31 18:36 | Observation (INO) | payer MEDICAID ==
[~2016-12-31] VITALS: Ht 177.8 cm; Wt 140.6 kg
[~2016-12-31 18:36] MED LIST changes: -CEPH-37 PO; -FURO20TA3; +GABA-497 PO; -GABA300C8 PO; -METF-316 OR; +METF-372 OR
[2016-12-31 19:42] LABS: Basophils # (auto) 0.1 uL; Basophils % (auto) 0.8 % (0.0-2.0); Eosinophils # (auto) 0.2 uL; Hematocrit 29.3 % (41.0-53.0); Hemoglobin 9.7 g/dL (13.5-17.5); Lymphocytes % (auto) 19.6 % (10.0-50.0); Mean Corpuscular Hemoglobin 27.3 pg (28.0-32.0); Mean Corpuscular Volume 82.8 fL (80.0-100.0); Mean Platelet Volume 7.9 fL (7.4-10.4); Monocytes # (auto) 0.8 uL; Monocytes % (auto) 7.8 % (0.0-12.0); Neutrophils # (auto) 7.2 uL; Neutrophils % (auto) 69.8 % (37.0-80.0); Platelet Count (auto) 626 10^3/uL (140-450); Red Cell Distribution Width 15.3 % (11.6-16.0); White Blood Cell 10.4 10^3/uL (4.4-10.8)
[2016-12-31 20:02] LABS: Albumin 2.4 g/dL (3.4-5.0); BUN/Creatinine Ratio 12.4; Calcium 8.9 mg/dL (8.5-10.1); Potassium 4.3 mmol/L (3.5-5.1)
[2016-12-31 20:05] LABS: Bilirubin, Total 0.3 mg/dL (0.2-1.0); Total Protein 7.9 g/dL (6.4-8.2)
[2016-12-31] MEDS ORDERED: HYDROmorphone HCL 2 MG/ML VL IV ONE (21:15)
[2016-12-31] MEDS ORDERED: ONDANSETRON HCL 4 MG/2 ML VIAL IV ONE (21:15)
[2017-01-01] MEDS ORDERED: cefTRIAXone 1GM/50ML D5W 50 ML IV ONE (01:00)
[2017-01-01] MEDS ORDERED: ONDANSETRON HCL 4 MG/2 ML VIAL IV ONE (01:00)
[2017-01-01] MEDS ORDERED: HYDROmorphone HCL 2 MG/ML VL IV ONE (01:00)
[2017-01-01] MEDS ORDERED: VANCOMYCIN 1GM/250ML D5W 250 ML IV ONE (01:00)
[2017-01-01] MEDS ORDERED: TEMAZEPAM 15 MG CAP PO ONE (01:15)
[2017-01-01 05:05] VITALS: BP 106/61
== END 2017-01-01 06:12 | disposition home or self-care (01) | DRG 384 ==
LOC: EDBD 18:36 → ER 18:38 → OVERFLOW 18:39 → ER 01-01 06:12
PROVIDERS: ADMIT Emergency Medicine; ATTEND Emergency Medicine
DX: S80.11XA Contusion of right lower leg, initial encounter (principal); I13.0 Hypertensive heart and chronic kidney disease with heart failure and stage 1 through stage 4 chronic kidney disease, or unspecified chronic kidney disease; E11.22 Type 2 diabetes mellitus with diabetic chronic kidney disease; I50.9 Heart failure, unspecified; L03.115 Cellulitis of right lower limb; J44.9 Chronic obstructive pulmonary disease, unspecified; X58.XXXA Exposure to other specified factors, initial encounter; Y93.89 Activity, other specified; Y92.89 Other specified places as the place of occurrence of the external cause; Y99.8 Other external cause status; I25.10 Atherosclerotic heart disease of native coronary artery without angina pectoris; N18.9 Chronic kidney disease, unspecified; I25.2 Old myocardial infarction; Z79.899 Other long term (current) drug therapy; Z79.82 Long term (current) use of aspirin; Z83.3 Family history of diabetes mellitus; Z82.49 Family history of ischemic heart disease and other diseases of the circulatory system; Z82.3 Family history of stroke; F17.210 Nicotine dependence, cigarettes, uncomplicated
CPT/HCPCS: 36415; 73700; 80053; 85025; 87040; 96365; 96368; 96375; 96376; G0378; J0696; J2405

== ENCOUNTER 2017-01-26 17:41 | Inpatient (IN) | payer MEDICAID ==
[~2017-01-26] VITALS: Ht 177.8 cm; Wt 168.9 kg
[2017-01-26] MEDS ORDERED: HYDROmorphone HCL 2 MG/ML VL IV ONE ×2 (19:30→20:45)
[2017-01-26] MEDS ORDERED: ONDANSETRON HCL 4 MG/2 ML VIAL IV ONE (19:30)
[2017-01-26 19:47] LABS: Basophils # (auto) 0.1 uL; Basophils % (auto) 0.7 % (0.0-2.0); CONDITION Y; Eosinophils # (auto) 0.4 uL; Eosinophils % (auto) 4.2 % (0.0-7.0); Hematocrit 36.8 % (41.0-53.0); Hemoglobin 12.1 g/dL (13.5-17.5); Lymphocytes # (auto) 2.3 uL; Lymphocytes % (auto) 25.6 % (10.0-50.0); Mean Corpuscular Hemoglobin 27.4 pg (28.0-32.0); Mean Corpuscular Hgb Conc. 32.8 g/dL (32.0-36.0); Mean Corpuscular Volume 83.6 fL (80.0-100.0); Mean Platelet Volume 8.8 fL (7.4-10.4); Monocytes # (auto) 0.6 uL; Monocytes % (auto) 7.1 % (0.0-12.0); Neutrophils # (auto) 5.7 uL; Neutrophils % (auto) 62.4 % (37.0-80.0); Platelet Count (auto) 309 10^3/uL (140-450); Red Cell Distribution Width 17.7 % (11.6-16.0); White Blood Cell 9.1 10^3/uL (4.4-10.8)
[2017-01-26 20:06] LABS: Albumin 2.7 g/dL (3.4-5.0); BUN/Creatinine Ratio 20.2; Bilirubin, Total 0.2 mg/dL (0.2-1.0); Calcium 8.9 mg/dL (8.5-10.1); Potassium 4.1 mmol/L (3.5-5.1)
[2017-01-26 21:07] LABS: Urine RBC None Seen /hpf (0 - 3)
[2017-01-26 21:39] LABS: Urine Bilirubin Negative (Negative); Urine Blood Negative /uL (Negative); Urine Color Yellow (Yellow); Urine Ketone Negative (Negative); Urine Nitrite Negative (Negative); Urine Urobilinogen Normal (Negative)
[2017-01-26 21:44] LABS: Urine Glucose 1+ mg/dL (Normal)
[2017-01-26] MEDS ORDERED: HYDROcodone-ACET 10/325MG TAB PO ONE (22:15)
[2017-01-27] MEDS ORDERED: ONDANSETRON HCL 4 MG/2 ML VIAL IV ONE
[2017-01-27] MEDS ORDERED: HYDROmorphone HCL 2 MG/ML VL IV ONE
[2017-01-27] MEDS ORDERED: DEXTROSE (50%) 50ML SYRG IV PRN ×2 (00:45→10:15)
[2017-01-27] MEDS ORDERED: VANCOMYCIN PER PHARMACY 0 MG IV SCH (00:45)
[2017-01-27] MEDS ORDERED: NITROGLYCERIN 0.4 MG SL TAB SL PRN (00:45)
[2017-01-27] MEDS ORDERED: MORPHINE SULF INJ 2 MG/ML SYRINGE 1ML IV PRN (00:45)
[2017-01-27] MEDS ORDERED: TEMAZEPAM 15 MG CAP PO PRN (00:45)
[2017-01-27] MEDS ORDERED: LACTULOSE 20Gm/30ML SOLN PO PRN (00:45)
[2017-01-27] MEDS ORDERED: ONDANSETRON HCL 4 MG/2 ML VIAL IV PRN (00:45)
[2017-01-27] MEDS ORDERED: LORazepam 0.5 MG TAB PO PRN (00:45)
[2017-01-27] MEDS ORDERED: ACETAMINOPHEN 500 MG TAB PO PRN (00:45)
[2017-01-27] MEDS ORDERED: VANCOMYCIN 1GM/250ML D5W 250 ML IV ONE (01:30)
[2017-01-27] MEDS: MORPHINE SULF INJ 2 MG/ML SYRINGE 1ML IV PRN ×2 (04:31→08:28)
[2017-01-27] MEDS: FUROSEMIDE 20 MG TAB PO SCH ×2 (06:51→18:06)
[2017-01-27] MEDS: GABAPENTIN 300 MG CAP PO SCH ×3 (06:51→21:35)
[2017-01-27] MEDS: PIPERACILLIN-TAZOB 3.375GM 100 ML IV SCH ×3 (06:51→18:06)
[2017-01-27] MEDS ORDERED: ACCU-CHEK COMFORT CURVE STRIP VI SCH (07:00)
[2017-01-27] MEDS ORDERED: InsuLIN REG 1unit/0.01ml Soln (100units/ml) SC SCH ×2 (07:00→22:00)
[2017-01-27] MEDS ORDERED: GLIMEPIRIDE 2 MG TAB PO SCH (07:00)
[2017-01-27] MEDS: ASPirin-EC 81 mg tab PO SCH (07:59)
[2017-01-27 09:14] LABS: Albumin 2.6 g/dL (3.4-5.0); BUN/Creatinine Ratio 19.1; Bilirubin, Total 0.3 mg/dL (0.2-1.0); Calcium 8.9 mg/dL (8.5-10.1); Potassium 4.2 mmol/L (3.5-5.1); Total Protein 6.8 g/dL (6.4-8.2)
[2017-01-27] MEDS: FAMOTIDINE 20 MG TAB PO SCH (10:15)
[2017-01-27] MEDS ORDERED: SODIUM CHLORIDE 0.9% 1,000 ML IV SCH (10:15)
[2017-01-27] MEDS: POTASSIUM CHLORIDE 8 MEQ TAB PO SCH (10:15)
[2017-01-27] MEDS: ATENOLOL 25 MG TAB PO SCH ×2 (10:16→21:38)
[2017-01-27 10:20] VITALS: BP 113/73
[2017-01-27] MEDS: SODIUM CHLORIDE 0.9% 1,000 ML IV SCH ×2 (10:23→20:23)
[2017-01-27] MEDS: HYDROmorphone HCL 2 MG/ML VL IV PRN ×2 (10:55→15:12)
[2017-01-27] MEDS: InsuLIN REG 1unit/0.01ml Soln (100units/ml) SC SCH ×2 (11:56→18:05)
[2017-01-27] MEDS: ACCU-CHEK COMFORT CURVE STRIP VI SCH ×2 (11:59→18:05)
[2017-01-27 12:15] VITALS: BP 125/72
[2017-01-27] MEDS: VANCOMYCIN 1,500 MG in D5W 5% 250 ML IV SCH (15:12)
[2017-01-27 16:26] VITALS: BP 128/70
[2017-01-27] MEDS: GLIMEPIRIDE 2 MG TAB PO SCH (21:44)
[2017-01-27 22:00] VITALS: BP 122/64
[2017-01-28] VITALS (7 sets, daily range): BP systolic 106–142; BP diastolic 78–106
[2017-01-28] MEDS: ACCU-CHEK COMFORT CURVE STRIP VI SCH ×4 (00:13→18:28)
[2017-01-28] MEDS: PIPERACILLIN-TAZOB 3.375GM 100 ML IV SCH ×4 (00:14→18:27)
[2017-01-28] MEDS: InsuLIN REG 1unit/0.01ml Soln (100units/ml) SC SCH ×4 (00:14→18:27)
[2017-01-28] MEDS: HYDROmorphone HCL 2 MG/ML VL IV PRN ×5 (01:22→20:53)
[2017-01-28] MEDS: VANCOMYCIN 1,500 MG in D5W 5% 250 ML IV SCH ×2 (03:03→16:07)
[2017-01-28] MEDS: GABAPENTIN 300 MG CAP PO SCH ×3 (05:48→20:53)
[2017-01-28] MEDS: FUROSEMIDE 20 MG TAB PO SCH ×2 (05:48→18:27)
[2017-01-28 06:11] LABS: Basophils # (auto) 0.1 uL; Basophils % (auto) 0.7 % (0.0-2.0); CONDITION Y; DEFINITIVE SEE PRINTOUT; Eosinophils # (auto) 0.8 uL; Eosinophils % (auto) 8.4 % (0.0-7.0); Hematocrit 35.8 % (41.0-53.0); Hemoglobin 11.6 g/dL (13.5-17.5); Lymphocytes # (auto) 1.9 uL; Lymphocytes % (auto) 20.9 % (10.0-50.0); Mean Corpuscular Hemoglobin 27.4 pg (28.0-32.0); Mean Corpuscular Hgb Conc. 32.5 g/dL (32.0-36.0); Mean Corpuscular Volume 84.2 fL (80.0-100.0); Mean Platelet Volume 8.7 fL (7.4-10.4); Monocytes # (auto) 0.7 uL; Monocytes % (auto) 7.8 % (0.0-12.0); Neutrophils # (auto) 5.7 uL; Neutrophils % (auto) 62.2 % (37.0-80.0); Platelet Count (auto) 313 10^3/uL (140-450); Red Cell Distribution Width 17.9 % (11.6-16.0); White Blood Cell 9.1 10^3/uL (4.4-10.8)
[2017-01-28 06:21] LABS: Albumin 2.6 g/dL (3.4-5.0); BUN/Creatinine Ratio 15.9; Calcium 8.6 mg/dL (8.5-10.1); Potassium 4.4 mmol/L (3.5-5.1)
[2017-01-28 06:23] LABS: Bilirubin, Total 0.3 mg/dL (0.2-1.0); Total Protein 7.1 g/dL (6.4-8.2)
[2017-01-28] MEDS: SODIUM CHLORIDE 0.9% 1,000 ML IV SCH ×2 (06:24→17:40)
[2017-01-28] MEDS: GLIMEPIRIDE 2 MG TAB PO SCH ×2 (10:42→20:58)
[2017-01-28] MEDS: ASPirin-EC 81 mg tab PO SCH (10:42)
[2017-01-28] MEDS: POTASSIUM CHLORIDE 8 MEQ TAB PO SCH (10:43)
[2017-01-28] MEDS: FAMOTIDINE 20 MG TAB PO SCH (10:43)
[2017-01-28] MEDS: ATENOLOL 25 MG TAB PO SCH ×2 (10:44→21:04)
[2017-01-29] MEDS: ACCU-CHEK COMFORT CURVE STRIP VI SCH ×5 (00:07→23:42)
[2017-01-29] MEDS: PIPERACILLIN-TAZOB 3.375GM 100 ML IV SCH ×3 (00:08→12:22)
[2017-01-29] MEDS: InsuLIN REG 1unit/0.01ml Soln (100units/ml) SC SCH ×5 (00:38→23:42)
[2017-01-29] MEDS: HYDROmorphone HCL 2 MG/ML VL IV PRN ×5 (00:57→18:38)
[2017-01-29] MEDS: SODIUM CHLORIDE 0.9% 1,000 ML IV SCH ×3 (02:23→22:23)
[2017-01-29 02:49] LABS: Albumin 2.5 g/dL (3.4-5.0); BUN/Creatinine Ratio 14.6; Calcium 8.4 mg/dL (8.5-10.1); Potassium 4.1 mmol/L (3.5-5.1)
[2017-01-29 02:52] LABS: Bilirubin, Total 0.3 mg/dL (0.2-1.0); Total Protein 6.9 g/dL (6.4-8.2)
[2017-01-29] MEDS: VANCOMYCIN 1,500 MG in D5W 5% 250 ML IV SCH (03:40)
[2017-01-29] MEDS: GABAPENTIN 300 MG CAP PO SCH ×3 (04:57→22:34)
[2017-01-29 05:00] VITALS: BP 153/68
[2017-01-29] MEDS: FUROSEMIDE 20 MG TAB PO SCH ×2 (05:17→18:33)
[2017-01-29 09:00] VITALS: BP 19/83
[2017-01-29] MEDS: POTASSIUM CHLORIDE 8 MEQ TAB PO SCH (09:49)
[2017-01-29] MEDS: ASPirin-EC 81 mg tab PO SCH (09:49)
[2017-01-29] MEDS: FAMOTIDINE 20 MG TAB PO SCH (09:49)
[2017-01-29] MEDS: ATENOLOL 25 MG TAB PO SCH ×2 (09:50→22:34)
[2017-01-29 10:01] LABS: BUN/Creatinine Ratio 15.6; Potassium 4.5 mmol/L (3.5-5.1)
[2017-01-29] MEDS: GLIMEPIRIDE 2 MG TAB PO SCH ×2 (10:02→22:33)
[2017-01-29 13:00] VITALS: BP 124/68
[2017-01-29] MEDS: VANCOMYCIN 1,250 MG in D5W 5% 250 ML IV SCH (15:00)
[2017-01-29 17:00] VITALS: BP 120/55
[2017-01-29] MEDS: MUPIROCIN 2% OINT 22GM EACHNOSTRI SCH ×2 (18:42→22:33)
[2017-01-29 20:00] VITALS: BP 114/63
[2017-01-29 22:00] VITALS: BP_SYST 114; BP_SYST 135; BP_DIAS 63; BP_DIAS 78
[2017-01-29] MEDS: INSULIN DETEMIR(LEVEMIR) 1unit/0.01ml Soln (100units/ml) SC SCH (22:35)
[2017-01-30] MEDS: HYDROmorphone HCL 2 MG/ML VL IV PRN ×6 (01:03→22:25)
[2017-01-30] MEDS: VANCOMYCIN 1,250 MG in D5W 5% 250 ML IV SCH ×2 (03:29→14:45)
[2017-01-30 05:00] VITALS: BP 97/30
[2017-01-30] MEDS: InsuLIN REG 1unit/0.01ml Soln (100units/ml) SC SCH ×3 (06:08→18:13)
[2017-01-30] MEDS: ACCU-CHEK COMFORT CURVE STRIP VI SCH ×3 (06:08→18:13)
[2017-01-30] MEDS: GABAPENTIN 300 MG CAP PO SCH ×3 (06:08→22:38)
[2017-01-30] MEDS: FUROSEMIDE 20 MG TAB PO SCH ×2 (06:14→18:15)
[2017-01-30 06:44] LABS: Basophils # (auto) 0 uL; Basophils % (auto) 0.6 % (0.0-2.0); CONDITION Y; Eosinophils # (auto) 0.5 uL; Hematocrit 37.2 % (41.0-53.0); Hemoglobin 12.2 g/dL (13.5-17.5); Lymphocytes # (auto) 1.9 uL; Lymphocytes % (auto) 24.6 % (10.0-50.0); Mean Corpuscular Hemoglobin 27.6 pg (28.0-32.0); Mean Corpuscular Volume 83.8 fL (80.0-100.0); Mean Platelet Volume 8.9 fL (7.4-10.4); Monocytes # (auto) 0.7 uL; Monocytes % (auto) 8.6 % (0.0-12.0); Neutrophils # (auto) 4.7 uL; Neutrophils % (auto) 60.2 % (37.0-80.0); Platelet Count (auto) 297 10^3/uL (140-450); Red Cell Distribution Width 17.4 % (11.6-16.0); White Blood Cell 7.8 10^3/uL (4.4-10.8)
[2017-01-30 07:17] LABS: Albumin 2.8 g/dL (3.4-5.0); BUN/Creatinine Ratio 17.8; Bilirubin, Total 0.3 mg/dL (0.2-1.0); Calcium 9.5 mg/dL (8.5-10.1)
[2017-01-30 08:30] VITALS: BP 131/69
[2017-01-30] MEDS: SODIUM CHLORIDE 0.9% 1,000 ML IV SCH ×2 (09:48→18:38)
[2017-01-30] MEDS: POTASSIUM CHLORIDE 8 MEQ TAB PO SCH (10:06)
[2017-01-30] MEDS: FAMOTIDINE 20 MG TAB PO SCH (10:07)
[2017-01-30] MEDS: ASPirin-EC 81 mg tab PO SCH (10:07)
[2017-01-30] MEDS: MUPIROCIN 2% OINT 22GM EACHNOSTRI SCH ×2 (10:12→22:45)
[2017-01-30] MEDS: ATENOLOL 25 MG TAB PO SCH ×2 (10:13→22:43)
[2017-01-30] MEDS: GLIMEPIRIDE 2 MG TAB PO SCH ×2 (10:18→22:39)
[2017-01-30 13:00] VITALS: BP 141/80
[2017-01-30] MEDS ORDERED: LIDOCAINE 1% HCL (LOCAL ANESTH.) INJ 20ML MDV ID ONE (14:30)
[2017-01-30 16:32] VITALS: BP 119/65
[2017-01-30] MEDS: PRO-STAT 64 30ML PO SCH (18:13)
[2017-01-30 22:00] VITALS: BP 125/65
[2017-01-30] MEDS: INSULIN DETEMIR(LEVEMIR) 1unit/0.01ml Soln (100units/ml) SC SCH (22:00)
[2017-01-30] MEDS: ASCORBIC ACID 500 MG TAB PO SCH (22:39)
[2017-01-30] MEDS: SODIUM CHLOR 0.9% PF (SALINE LOCK) 10ML VIAL IV SCH (22:40)
[2017-01-31] MEDS: HYDROmorphone HCL 2 MG/ML VL IV PRN ×3 (03:10→11:30)
[2017-01-31] MEDS: VANCOMYCIN 1,250 MG in D5W 5% 250 ML IV SCH (04:10)
[2017-01-31] MEDS: ACCU-CHEK COMFORT CURVE STRIP VI SCH ×2 (06:00)
[2017-01-31] MEDS: InsuLIN REG 1unit/0.01ml Soln (100units/ml) SC SCH ×2 (06:00)
[2017-01-31] MEDS: GABAPENTIN 300 MG CAP PO SCH (06:15)
[2017-01-31] MEDS: FUROSEMIDE 20 MG TAB PO SCH (06:16)
[2017-01-31] MEDS: SODIUM CHLORIDE 0.9% 1,000 ML IV SCH (07:14)
[2017-01-31] MEDS: PRO-STAT 64 30ML PO SCH (08:11)
[2017-01-31 08:43] VITALS: BP 150/79
[2017-01-31] MEDS ORDERED: MULTIPLE VITAMINS W/ MINERALS TAB PO SCH (10:00)
[2017-01-31] MEDS: MUPIROCIN 2% OINT 22GM EACHNOSTRI SCH (10:17)
[2017-01-31] MEDS: SODIUM CHLOR 0.9% PF (SALINE LOCK) 10ML VIAL IV SCH (10:18)
[2017-01-31] MEDS: GLIMEPIRIDE 2 MG TAB PO SCH (10:18)
[2017-01-31] MEDS: ASPirin-EC 81 mg tab PO SCH (10:18)
[2017-01-31] MEDS: POTASSIUM CHLORIDE 8 MEQ TAB PO SCH (10:18)
[2017-01-31] MEDS: ATENOLOL 25 MG TAB PO SCH (10:19)
[2017-01-31] MEDS: ASCORBIC ACID 500 MG TAB PO SCH (10:19)
[2017-01-31] MEDS: FAMOTIDINE 20 MG TAB PO SCH (10:19)
[2017-01-31 12:36] VITALS: BP 123/66
== END 2017-01-31 12:10 | disposition left against medical advice (07) | DRG 383 ==
LOC: ER 17:46 → TELE 17:47 → TELE-EAST 01-27 09:20 → EAST 01-27 16:51
PROVIDERS: ADMIT Nurse Practitioner Family; ATTEND Internal Medicine
PROC: 02HV33Z Insertion of Infusion Device into Superior Vena Cava, Percutaneous Approach (ICD-10-PCS; principal; 2017-01-26)
DX: L02.415 Cutaneous abscess of right lower limb (principal); I13.2 Hypertensive heart and chronic kidney disease with heart failure and with stage 5 chronic kidney disease, or end stage renal disease; E11.22 Type 2 diabetes mellitus with diabetic chronic kidney disease; N18.5 Chronic kidney disease, stage 5; E11.42 Type 2 diabetes mellitus with diabetic polyneuropathy; I50.9 Heart failure, unspecified; F17.210 Nicotine dependence, cigarettes, uncomplicated; K21.9 Gastro-esophageal reflux disease without esophagitis; M10.9 Gout, unspecified; E66.9 Obesity, unspecified; Z68.43 Body mass index [BMI] 50.0-59.9, adult; E11.65 Type 2 diabetes mellitus with hyperglycemia; E66.01 Morbid (severe) obesity due to excess calories; I25.10 Atherosclerotic heart disease of native coronary artery without angina pectoris; I25.2 Old myocardial infarction; J44.9 Chronic obstructive pulmonary disease, unspecified; Z79.4 Long term (current) use of insulin; Z80.0 Family history of malignant neoplasm of digestive organs; Z80.1 Family history of malignant neoplasm of trachea, bronchus and lung; Z80.3 Family history of malignant neoplasm of breast; Z80.42 Family history of malignant neoplasm of prostate; Z80.8 Family history of malignant neoplasm of other organs or systems; Z81.8 Family history of other mental and behavioral disorders; Z82.0 Family history of epilepsy and other diseases of the nervous system; Z82.3 Family history of stroke; Z82.49 Family history of ischemic heart disease and other diseases of the circulatory system; Z83.3 Family history of diabetes mellitus; Z90.49 Acquired absence of other specified parts of digestive tract; Z90.89 Acquired absence of other organs; Z85.9 Personal history of malignant neoplasm, unspecified; Z71.89 Other specified counseling; Z84.1 Family history of disorders of kidney and ureter; Z83.49 Family history of other endocrine, nutritional and metabolic diseases; Z53.21 Procedure and treatment not carried out due to patient leaving prior to being seen by health care provider
CPT/HCPCS: 36415; 71010; 73700; 80048; 80053; 80202; 81001; 82962; 83605; 85025; 87077; 87081; 87186; 87205; 93971; 96374; 96375; 96376; J1815; J2405; J2543; J7060

== ENCOUNTER 2017-02-02 09:33 | Emergency (ER) | payer MEDICAID ==
[~2017-02-02] VITALS: Ht 180.3 cm; Wt 142.9 kg
[2017-02-02] MEDS ORDERED: SODIUM CHLORIDE 0.9% 500 ML IV ONE (09:58)
[2017-02-02] MEDS ORDERED: ONDANSETRON HCL 4 MG/2 ML VIAL IV ONE (10:00)
[2017-02-02] MEDS ORDERED: HYDROmorphone HCL 2 MG/ML VL IV ONE ×2 (10:00→11:15)
[2017-02-02] MEDS ORDERED: VANCOMYCIN 1GM/250ML D5W 250 ML IV ONE (10:15)
[2017-02-02 10:29] LABS: Basophils # (auto) 0.1 uL; Basophils % (auto) 0.6 % (0.0-2.0); CONDITION Y; Eosinophils # (auto) 0.3 uL; Eosinophils % (auto) 2.9 % (0.0-7.0); Hematocrit 40.3 % (41.0-53.0); Hemoglobin 13.4 g/dL (13.5-17.5); Lymphocytes # (auto) 2.3 uL; Lymphocytes % (auto) 20.7 % (10.0-50.0); Mean Corpuscular Hemoglobin 27.6 pg (28.0-32.0); Mean Corpuscular Hgb Conc. 33.3 g/dL (32.0-36.0); Mean Corpuscular Volume 82.8 fL (80.0-100.0); Monocytes # (auto) 0.6 uL; Monocytes % (auto) 5.2 % (0.0-12.0); Neutrophils # (auto) 7.7 uL; Neutrophils % (auto) 70.6 % (37.0-80.0); Platelet Count (auto) 322 10^3/uL (140-450); Red Cell Distribution Width 16.9 % (11.6-16.0); White Blood Cell 10.9 10^3/uL (4.4-10.8)
[2017-02-02 10:44] LABS: BUN/Creatinine Ratio 16.2; Bilirubin, Total 0.2 mg/dL (0.2-1.0); Calcium 9.4 mg/dL (8.5-10.1); Potassium 4.2 mmol/L (3.5-5.1); Total Protein 7.8 g/dL (6.4-8.2)
[2017-02-02] MEDS ORDERED: KETOROLAC TROMETH 30 MG/ML 1ML VIAL IV ONE (12:30)
[2017-02-02 13:51] VITALS: BP 138/83
== END 2017-02-02 13:53 | disposition home or self-care (01) ==
LOC: ER 09:33
DX: M79.602 Pain in left arm (principal); M79.604 Pain in right leg; E11.65 Type 2 diabetes mellitus with hyperglycemia; I10 Essential (primary) hypertension; Z85.528 Personal history of other malignant neoplasm of kidney; F17.210 Nicotine dependence, cigarettes, uncomplicated; I25.2 Old myocardial infarction; M10.9 Gout, unspecified; J44.9 Chronic obstructive pulmonary disease, unspecified; I25.10 Atherosclerotic heart disease of native coronary artery without angina pectoris; Z90.49 Acquired absence of other specified parts of digestive tract; Z79.4 Long term (current) use of insulin; Z79.82 Long term (current) use of aspirin; Z88.6 Allergy status to analgesic agent
CPT/HCPCS: 36415; 76881; 80053; 85025; 94761; 96365; 96375; 96376; 99285; J1170; J1885; J2405; J3370; J7040

== ENCOUNTER 2017-03-22 11:20 | Emergency (ER) | payer MEDICAID ==
[~2017-03-22] VITALS: Ht 180.3 cm; Wt 158.8 kg
[~2017-03-22 11:20] MED LIST changes: +CEPH-37 PO
[2017-03-22 11:59] LABS: Basophils # (auto) 0.1 uL; Basophils % (auto) 0.7 % (0.0-2.0); CONDITION Y; Eosinophils # (auto) 0.3 uL; Eosinophils % (auto) 3.9 % (0.0-7.0); Hematocrit 46.4 % (41.0-53.0); Hemoglobin 15.4 g/dL (13.5-17.5); Lymphocytes # (auto) 2.2 uL; Lymphocytes % (auto) 26.8 % (10.0-50.0); Mean Corpuscular Hgb Conc. 33.2 g/dL (32.0-36.0); Mean Corpuscular Volume 84.1 fL (80.0-100.0); Mean Platelet Volume 9.4 fL (7.4-10.4); Monocytes # (auto) 0.4 uL; Monocytes % (auto) 5.1 % (0.0-12.0); Neutrophils # (auto) 5.3 uL; Neutrophils % (auto) 63.5 % (37.0-80.0); Platelet Count (auto) 341 10^3/uL (140-450); Red Cell Distribution Width 16.3 % (11.6-16.0); White Blood Cell 8.3 10^3/uL (4.4-10.8)
[2017-03-22 12:21] LABS: Albumin 3.1 g/dL (3.4-5.0); BUN/Creatinine Ratio 14.5; Calcium 8.9 mg/dL (8.5-10.1); Potassium 4.5 mmol/L (3.5-5.1)
[2017-03-22 12:27] LABS: Bilirubin, Total 0.2 mg/dL (0.2-1.0); Total Protein 7.7 g/dL (6.4-8.2)
[2017-03-22 15:29] VITALS: BP 92/44
== END 2017-03-22 16:14 | disposition home or self-care (01) ==
LOC: ER 11:20
DX: T81.4XXD Infection following a procedure, subsequent encounter (principal); B99.9 Unspecified infectious disease; M79.604 Pain in right leg; E66.01 Morbid (severe) obesity due to excess calories; E11.65 Type 2 diabetes mellitus with hyperglycemia; Z68.42 Body mass index [BMI] 45.0-49.9, adult; M10.9 Gout, unspecified; J44.9 Chronic obstructive pulmonary disease, unspecified; I25.10 Atherosclerotic heart disease of native coronary artery without angina pectoris; E11.22 Type 2 diabetes mellitus with diabetic chronic kidney disease; I13.0 Hypertensive heart and chronic kidney disease with heart failure and stage 1 through stage 4 chronic kidney disease, or unspecified chronic kidney disease; N18.9 Chronic kidney disease, unspecified; I50.9 Heart failure, unspecified; Z79.4 Long term (current) use of insulin; E78.5 Hyperlipidemia, unspecified; I25.2 Old myocardial infarction; Z85.528 Personal history of other malignant neoplasm of kidney; Z90.49 Acquired absence of other specified parts of digestive tract; Z79.82 Long term (current) use of aspirin; Z88.6 Allergy status to analgesic agent
CPT/HCPCS: 36415; 80053; 85025

== ENCOUNTER 2017-06-07 23:14 | Emergency (ER) | payer MEDICAID ==
[~2017-06-07] VITALS: Ht 188 cm; Wt 181.4 kg
[2017-06-08 05:33] LABS: Basophils # (auto) 0.1 uL; Eosinophils # (auto) 0.3 uL; Hematocrit 44.6 % (41.0-53.0); Hemoglobin 14.4 g/dL (13.5-17.5); Lymphocytes # (auto) 2.4 uL; Lymphocytes % (auto) 29.6 % (10.0-50.0); Mean Corpuscular Hemoglobin 27.3 pg (28.0-32.0); Mean Corpuscular Hgb Conc. 32.4 g/dL (32.0-36.0); Mean Corpuscular Volume 84.3 fL (80.0-100.0); Monocytes # (auto) 0.7 uL; Neutrophils # (auto) 4.6 uL; Neutrophils % (auto) 56.4 % (37.0-80.0); Nucleated Red Blood Cells % 0.2 %; Platelet Count (auto) 222 10^3/uL (140-450); Red Cell Distribution Width 16.6 % (11.8-14.3); White Blood Cell 8.1 10^3/uL (4.4-10.8)
[2017-06-08 06:20] LABS: Alkaline Phosphatase 142 U/L (45-117); Anion Gap 8 (5-15); Aspartate Aminotransferase 20 U/L (15-37); BUN/Creatinine Ratio 26.5; Bilirubin, Total 0.5 mg/dL (0.2-1.0); Blood Urea Nitrogen 30 mg/dL (7-18); Calcium 8.8 mg/dL (8.5-10.1); Carbon Dioxide 26 mmol/L (21-32); Chloride 104 mmol/L (98-107); GFR African American 88 mL/min; GFR Non-African American 73 mL/min; Glucose 154 mg/dL (74-106); Magnesium 2.3 mg/dL (1.6-2.6); Sodium 138 mmol/L (136-145); Total Protein 7.2 g/dL (6.4-8.2)
[2017-06-08 08:27] LABS: Urine RBC None Seen /hpf (0 - 3)
[2017-06-08 08:43] LABS: Urine Bilirubin Negative (Negative); Urine Blood Negative /uL (Negative); Urine Color Yellow (Yellow); Urine Glucose 1+ mg/dL (Normal); Urine Ketone Negative (Negative); Urine Mucus FEW (None Seen); Urine Nitrite Negative (Negative); Urine Squamous Epithelial Cell FEW /hpf (<5); Urine Urobilinogen Normal (Negative); Urine pH 5.5 (5.0-8.0)
[2017-06-08 10:05] VITALS: BP 116/52
== END 2017-06-08 10:32 | disposition home or self-care (01) ==
LOC: ER 23:14 → EDBD 23:14 → ER 06-08 10:32
DX: G47.30 Sleep apnea, unspecified (principal); E66.2 Morbid (severe) obesity with alveolar hypoventilation; E66.01 Morbid (severe) obesity due to excess calories; Z68.43 Body mass index [BMI] 50.0-59.9, adult; I13.10 Hypertensive heart and chronic kidney disease without heart failure, with stage 1 through stage 4 chronic kidney disease, or unspecified chronic kidney disease; I50.9 Heart failure, unspecified; N18.9 Chronic kidney disease, unspecified; I25.2 Old myocardial infarction; E78.5 Hyperlipidemia, unspecified; Z86.73 Personal history of transient ischemic attack (TIA), and cerebral infarction without residual deficits; Z90.49 Acquired absence of other specified parts of digestive tract; Z90.89 Acquired absence of other organs
CPT/HCPCS: 36415; 71010; 80053; 81001; 83735; 84484; 85025; 93005

== ENCOUNTER 2017-08-08 08:54 | Inpatient (IN) | payer MEDICAID ==
[~2017-08-08] VITALS: Ht 182.9 cm; Wt 171.3 kg
[~2017-08-08 08:54] MED LIST changes: -GABA-497 PO; +GABA300C10 PO; -INSLANTI; +INSLANTI SC
[2017-08-08] MEDS ORDERED: CLINDAMYCIN 600MG IV 50 ML IV ONE (09:15)
[2017-08-08] MEDS ORDERED: methylPREDNISolone SOD SUCC 125 MG/2 ML VL IV ONE (09:15)
[2017-08-08 10:27] LABS: Basophils # (auto) 0 uL; Basophils % (auto) 0.9 % (0.0-2.0); Eosinophils # (auto) 0.1 uL; Eosinophils % (auto) 2.6 % (0.0-7.0); Hematocrit 44.2 % (41.0-53.0); Hemoglobin 14.8 g/dL (13.5-17.5); Lymphocytes # (auto) 1.7 uL; Lymphocytes % (auto) 35.9 % (10.0-50.0); Mean Corpuscular Hemoglobin 28.2 pg (28.0-32.0); Mean Corpuscular Hgb Conc. 33.6 g/dL (32.0-36.0); Mean Corpuscular Volume 83.9 fL (80.0-100.0); Monocytes # (auto) 0.5 uL; Monocytes % (auto) 11.4 % (0.0-12.0); Neutrophils # (auto) 2.3 uL; Neutrophils % (auto) 49.2 % (37.0-80.0); Nucleated Red Blood Cells % 0.1 %; Platelet Count (auto) 259 10^3/uL (140-450); Red Blood Cells 5.26 10^6/uL (4.5-5.90); Red Cell Distribution Width 18.1 % (11.8-14.3); White Blood Cell 4.6 10^3/uL (4.4-10.8)
[2017-08-08] MEDS ORDERED: ALBUTEROL SULF 2.5 MG/0.5ML(0.5%) NEB SOLN NEB PRN (11:45)
[2017-08-08] MEDS ORDERED: PROMETHAZINE HCL 25 MG/ML 1ML IV PRN (11:45)
[2017-08-08] MEDS ORDERED: LORazepam 0.5 MG TAB PO PRN (11:45)
[2017-08-08] MEDS ORDERED: DEXTROSE (50%) 50ML SYRG IV PRN ×3 (11:45→21:45)
[2017-08-08] MEDS ORDERED: LACTULOSE 20Gm/30ML SOLN PO PRN (11:45)
[2017-08-08] MEDS ORDERED: OSELTAMIVIR 75 MG CAP PO ONE (11:45)
[2017-08-08] MEDS ORDERED: NITROGLYCERIN 0.4 MG SL TAB SL PRN (11:45)
[2017-08-08] MEDS ORDERED: TEMAZEPAM 15 MG CAP PO PRN (11:45)
[2017-08-08] MEDS ORDERED: LABETALOL HCL 5 MG/ML ML 20ML VIAL IV PRN ×3 (11:45)
[2017-08-08] MEDS ORDERED: CARVEDILOL 12.5 MG TAB PO ONE (11:45)
[2017-08-08] MEDS ORDERED: ACETAMINOPHEN 500 MG TAB PO PRN (11:45)
[2017-08-08] MEDS ORDERED: MORPHINE SULFATE 10 MG/ML INJ 1ML SDV IV PRN (11:45)
[2017-08-08] MEDS: LEVOFLOXACIN 500MG 100 ML IV SCH (12:00)
[2017-08-08] MEDS: IPRATROPIUM BROM 0.5 MG/2.5ML INH SOL NEB SCH ×2 (12:00→18:00)
[2017-08-08] MEDS: ALBUTEROL SULF 2.5 MG/0.5ML(0.5%) NEB SOLN NEB SCH ×2 (12:00→18:00)
[2017-08-08] MEDS ORDERED: ASPirin 81 mg TAB PO ONE (12:15)
[2017-08-08] MEDS: FUROSEMIDE 40 MG/4 ML VIAL IV SCH (12:15)
[2017-08-08] MEDS: NITROGLYCERIN 0.2MG/HR TOPICAL PATCH TD SCH (12:15)
[2017-08-08] MEDS ORDERED: APIXABAN 5 MG TAB PO ONE (12:15)
[2017-08-08 12:37] LABS: Alanine Aminotransferase 31 U/L (16-61); Albumin 2.7 g/dL (3.4-5.0); Alkaline Phosphatase 98 U/L (45-117); Anion Gap 7 (5-15); Aspartate Aminotransferase 10 U/L (15-37); BUN/Creatinine Ratio 10.2; Bilirubin, Total 0.4 mg/dL (0.2-1.0); Blood Urea Nitrogen 10 mg/dL (7-18); Calcium 8.7 mg/dL (8.5-10.1); Carbon Dioxide 26 mmol/L (21-32); Chloride 105 mmol/L (98-107); GFR African American 103 mL/min; GFR Non-African American 85 mL/min; Glucose 219 mg/dL (74-106); Magnesium 2.4 mg/dL (1.6-2.6); Potassium 4.2 mmol/L (3.5-5.1); Sodium 138 mmol/L (136-145); Total Protein 6.8 g/dL (6.4-8.2)
[2017-08-08 12:55] LABS: Urine WBC None Seen /hpf (0 - 3)
[2017-08-08 13:16] LABS: Urine Bacteria NONE SEEN /hpf (None Seen); Urine Blood Negative /uL (Negative); Urine Mucus FEW (None Seen); Urine Specific Gravity 1.008 (1.001-1.035)
[2017-08-08] MEDS: HYDROcodone-ACET 5/325MG TAB PO PRN (13:23)
[2017-08-08 14:22] VITALS: BP 160/88
[2017-08-08] MEDS: MORPHINE SULFATE 10 MG/ML INJ 1ML SDV IV PRN ×2 (14:58→19:52)
[2017-08-08] MEDS: LINEZOLID 600MG/300ML 300 ML IV SCH (14:58)
[2017-08-08 15:01] VITALS: BP 160/88
[2017-08-08 15:53] VITALS: BP 158/87
[2017-08-08] MEDS ORDERED: InsuLIN REG 1unit/0.01ml Soln (100units/ml) SC SCH ×2 (17:00→20:00)
[2017-08-08] MEDS ORDERED: ACCU-CHEK COMFORT CURVE STRIP VI SCH ×2 (17:00→20:00)
[2017-08-08] MEDS ORDERED: InsuLIN REG 1unit/0.01ml Soln (100units/ml) IV ONE ×2 (18:15→21:00)
[2017-08-08] MEDS ORDERED: InsuLIN REG 1unit/0.01ml Soln (100units/ml) SC ONE (18:15)
[2017-08-08] MEDS ORDERED: INSULIN GLARGINE 50 UNIT SC SCH (22:00)
[2017-08-08] MEDS ORDERED: APIXABAN 5 MG TAB PO SCH (22:00)
[2017-08-08] MEDS: OSELTAMIVIR 75 MG CAP PO SCH (22:44)
[2017-08-08] MEDS: CARVEDILOL 12.5 MG TAB PO SCH (22:45)
[2017-08-08] MEDS: GEMFIBROZIL 600 MG TAB PO SCH (22:45)
[2017-08-08] MEDS: GABAPENTIN 300 MG CAP PO SCH (22:45)
[2017-08-08] MEDS: INSULIN DETEMIR(LEVEMIR) 1unit/0.01ml Soln (100units/ml) SC SCH (22:45)
[2017-08-09] VITALS: BP 118/63
[2017-08-09] MEDS: InsuLIN REG 1unit/0.01ml Soln (100units/ml) SC SCH ×6 (00:47→20:12)
[2017-08-09] MEDS: ACCU-CHEK COMFORT CURVE STRIP VI SCH ×6 (00:47→20:12)
[2017-08-09] MEDS: LINEZOLID 600MG/300ML 300 ML IV SCH ×2 (00:47→12:29)
[2017-08-09] MEDS: MORPHINE SULFATE 10 MG/ML INJ 1ML SDV IV PRN ×7 (00:47→20:12)
[2017-08-09 05:00] VITALS: BP 100/58
[2017-08-09 06:50] LABS: Basophils # (auto) 0 uL; Basophils % (auto) 0.1 % (0.0-2.0); Eosinophils # (auto) 0 uL; Hematocrit 43.4 % (41.0-53.0); Hemoglobin 14.2 g/dL (13.5-17.5); Lymphocytes % (auto) 9.7 % (10.0-50.0); Mean Corpuscular Hemoglobin 27.4 pg (28.0-32.0); Mean Corpuscular Hgb Conc. 32.8 g/dL (32.0-36.0); Mean Corpuscular Volume 83.5 fL (80.0-100.0); Monocytes # (auto) 0.2 uL; Monocytes % (auto) 2.1 % (0.0-12.0); Neutrophils # (auto) 8.7 uL; Neutrophils % (auto) 88.1 % (37.0-80.0); Platelet Count (auto) 240 10^3/uL (140-450); Red Blood Cells 5.19 10^6/uL (4.5-5.90); Red Cell Distribution Width 17.5 % (11.8-14.3); White Blood Cell 9.9 10^3/uL (4.4-10.8)
[2017-08-09] MEDS ORDERED: glipiZIDE 5 MG TAB PO SCH (07:00)
[2017-08-09] MEDS: IPRATROPIUM BROM 0.5 MG/2.5ML INH SOL NEB SCH ×7 (07:11→23:45)
[2017-08-09] MEDS: ALBUTEROL SULF 2.5 MG/0.5ML(0.5%) NEB SOLN NEB SCH ×6 (07:11→18:00)
[2017-08-09 07:17] LABS: Cholesterol 163 mg/dL (< 200); HDL Cholesterol 43 mg/dL (40-59); LDL Cholesterol 121 mg/dL (< 100); Triglycerides 95 mg/dL (< 150)
[2017-08-09 09:00] VITALS: BP 119/57
[2017-08-09] MEDS ORDERED: ASPirin 81 mg TAB PO SCH (10:00)
[2017-08-09] MEDS: LEVOFLOXACIN 500MG 100 ML IV SCH (10:06)
[2017-08-09] MEDS: GABAPENTIN 300 MG CAP PO SCH ×2 (10:07→22:33)
[2017-08-09] MEDS: GEMFIBROZIL 600 MG TAB PO SCH ×2 (10:07→22:33)
[2017-08-09] MEDS: FUROSEMIDE 40 MG/4 ML VIAL IV SCH (10:07)
[2017-08-09] MEDS: NITROGLYCERIN 0.2MG/HR TOPICAL PATCH TD SCH (10:07)
[2017-08-09] MEDS: OSELTAMIVIR 75 MG CAP PO SCH ×2 (10:07→22:34)
[2017-08-09] MEDS: CARVEDILOL 12.5 MG TAB PO SCH ×2 (10:08→22:34)
[2017-08-09] MEDS: INSULIN DETEMIR(LEVEMIR) 1unit/0.01ml Soln (100units/ml) SC SCH ×2 (10:08→22:41)
[2017-08-09 13:00] VITALS: BP 134/76
[2017-08-09 17:00] VITALS: BP 124/64
[2017-08-09] MEDS: glipiZIDE 5 MG TAB PO SCH (17:26)
[2017-08-09 22:00] VITALS: BP 118/46
[2017-08-10] MEDS: MORPHINE SULFATE 10 MG/ML INJ 1ML SDV IV PRN ×5 (00:22→22:19)
[2017-08-10] MEDS: InsuLIN REG 1unit/0.01ml Soln (100units/ml) SC SCH ×6 (00:23→19:58)
[2017-08-10] MEDS: ACCU-CHEK COMFORT CURVE STRIP VI SCH ×6 (00:23→19:58)
[2017-08-10] MEDS: LINEZOLID 600MG/300ML 300 ML IV SCH (00:23)
[2017-08-10] MEDS: HYDROcodone-ACET 5/325MG TAB PO PRN ×2 (03:42→14:22)
[2017-08-10 04:48] VITALS: BP 103/56
[2017-08-10] MEDS: ALBUTEROL SULF 2.5 MG/0.5ML(0.5%) NEB SOLN NEB SCH ×5 (05:42→18:00)
[2017-08-10] MEDS: IPRATROPIUM BROM 0.5 MG/2.5ML INH SOL NEB SCH ×4 (05:42→19:00)
[2017-08-10] MEDS: glipiZIDE 5 MG TAB PO SCH ×2 (06:29→17:46)
[2017-08-10 06:47] LABS: Basophils # (auto) 0.1 uL; Basophils % (auto) 0.9 % (0.0-2.0); Eosinophils # (auto) 0 uL; Eosinophils % (auto) 0.4 % (0.0-7.0); Hematocrit 40.6 % (41.0-53.0); Hemoglobin 13.4 g/dL (13.5-17.5); Lymphocytes % (auto) 21.5 % (10.0-50.0); Mean Corpuscular Hemoglobin 27.6 pg (28.0-32.0); Mean Corpuscular Hgb Conc. 32.9 g/dL (32.0-36.0); Mean Corpuscular Volume 83.9 fL (80.0-100.0); Monocytes # (auto) 0.5 uL; Monocytes % (auto) 5.8 % (0.0-12.0); Neutrophils # (auto) 6.5 uL; Neutrophils % (auto) 71.4 % (37.0-80.0); Nucleated Red Blood Cells % 0.1 %; Platelet Count (auto) 214 10^3/uL (140-450); Red Blood Cells 4.84 10^6/uL (4.5-5.90); Red Cell Distribution Width 17.6 % (11.8-14.3); White Blood Cell 9.1 10^3/uL (4.4-10.8)
[2017-08-10 06:59] LABS: Albumin 2.5 g/dL (3.4-5.0); BUN/Creatinine Ratio 23.7; Bilirubin, Total 0.3 mg/dL (0.2-1.0); Calcium 8.3 mg/dL (8.5-10.1); Potassium 3.9 mmol/L (3.5-5.1)
[2017-08-10 09:00] VITALS: BP 126/56
[2017-08-10] MEDS: LEVOFLOXACIN 500MG 100 ML IV SCH (10:01)
[2017-08-10] MEDS: GABAPENTIN 300 MG CAP PO SCH ×2 (10:02→22:17)
[2017-08-10] MEDS: GEMFIBROZIL 600 MG TAB PO SCH ×2 (10:02→22:16)
[2017-08-10] MEDS: OSELTAMIVIR 75 MG CAP PO SCH ×2 (10:02→22:17)
[2017-08-10] MEDS: CARVEDILOL 12.5 MG TAB PO SCH ×2 (10:03→22:16)
[2017-08-10] MEDS: FUROSEMIDE 40 MG/4 ML VIAL IV SCH (10:04)
[2017-08-10] MEDS: INSULIN DETEMIR(LEVEMIR) 1unit/0.01ml Soln (100units/ml) SC SCH ×2 (10:16→22:17)
[2017-08-10] MEDS: NITROGLYCERIN 0.2MG/HR TOPICAL PATCH TD SCH (10:17)
[2017-08-10] MEDS ORDERED: LEVOFLOXACIN 500 MG TAB PO ONE (11:15)
[2017-08-10] MEDS: LINEZOLID 600MG TABLET PO SCH ×2 (12:26→22:17)
[2017-08-10 13:00] VITALS: BP 132/76
[2017-08-10 17:00] VITALS: BP 140/76
[2017-08-10 21:30] VITALS: BP 112/71
[2017-08-11] MEDS: ACCU-CHEK COMFORT CURVE STRIP VI SCH ×6 (00:06→20:40)
[2017-08-11] MEDS: InsuLIN REG 1unit/0.01ml Soln (100units/ml) SC SCH ×6 (00:06→20:57)
[2017-08-11] MEDS: MORPHINE SULFATE 10 MG/ML INJ 1ML SDV IV PRN ×5 (04:28→23:02)
[2017-08-11 05:00] VITALS: BP 113/71
[2017-08-11] MEDS: glipiZIDE 5 MG TAB PO SCH ×2 (06:34→18:17)
[2017-08-11] MEDS: ALBUTEROL SULF 2.5 MG/0.5ML(0.5%) NEB SOLN NEB SCH ×5 (06:38→18:57)
[2017-08-11] MEDS: IPRATROPIUM BROM 0.5 MG/2.5ML INH SOL NEB SCH ×5 (06:38→18:57)
[2017-08-11 07:55] LABS: Basophils # (auto) 0.1 uL; Basophils % (auto) 1.9 % (0.0-2.0); Eosinophils # (auto) 0.1 uL; Eosinophils % (auto) 2.6 % (0.0-7.0); Hematocrit 43.8 % (41.0-53.0); Hemoglobin 14.3 g/dL (13.5-17.5); Lymphocytes # (auto) 1.8 uL; Lymphocytes % (auto) 41.9 % (10.0-50.0); Mean Corpuscular Hemoglobin 27.4 pg (28.0-32.0); Mean Corpuscular Hgb Conc. 32.7 g/dL (32.0-36.0); Mean Corpuscular Volume 83.6 fL (80.0-100.0); Monocytes # (auto) 0.4 uL; Monocytes % (auto) 9.5 % (0.0-12.0); Neutrophils # (auto) 1.9 uL; Neutrophils % (auto) 44.1 % (37.0-80.0); Nucleated Red Blood Cells % 0.3 %; Platelet Count (auto) 199 10^3/uL (140-450); Red Blood Cells 5.23 10^6/uL (4.5-5.90); Red Cell Distribution Width 17.8 % (11.8-14.3); White Blood Cell 4.2 10^3/uL (4.4-10.8)
[2017-08-11 08:34] LABS: Albumin 2.6 g/dL (3.4-5.0); BUN/Creatinine Ratio 20.2; Bilirubin, Total 0.6 mg/dL (0.2-1.0); Calcium 8.4 mg/dL (8.5-10.1); Potassium 4.1 mmol/L (3.5-5.1); Total Protein 6.2 g/dL (6.4-8.2)
[2017-08-11 09:21] VITALS: BP 98/72
[2017-08-11] MEDS: NITROGLYCERIN 0.2MG/HR TOPICAL PATCH TD SCH (10:00)
[2017-08-11] MEDS ORDERED: LEVOFLOXACIN 500 MG TAB PO SCH (10:00)
[2017-08-11] MEDS: GEMFIBROZIL 600 MG TAB PO SCH ×2 (10:13→22:30)
[2017-08-11] MEDS: OSELTAMIVIR 75 MG CAP PO SCH (10:13)
[2017-08-11] MEDS: GABAPENTIN 300 MG CAP PO SCH ×2 (10:14→22:31)
[2017-08-11] MEDS: LINEZOLID 600MG TABLET PO SCH ×2 (10:14→22:31)
[2017-08-11] MEDS: CARVEDILOL 12.5 MG TAB PO SCH ×2 (10:18→22:30)
[2017-08-11] MEDS: FUROSEMIDE 40 MG/4 ML VIAL IV SCH (10:19)
[2017-08-11] MEDS: INSULIN DETEMIR(LEVEMIR) 1unit/0.01ml Soln (100units/ml) SC SCH ×2 (10:19→22:31)
[2017-08-11 12:12] VITALS: BP 98/72
[2017-08-11 12:36] VITALS: BP 122/79
[2017-08-11 16:39] VITALS: BP 101/86
[2017-08-11 22:16] VITALS: BP 104/35
[2017-08-12] MEDS: ACCU-CHEK COMFORT CURVE STRIP VI SCH ×2 (00:32→03:51)
[2017-08-12] MEDS: InsuLIN REG 1unit/0.01ml Soln (100units/ml) SC SCH ×2 (00:39→04:00)
[2017-08-12] MEDS: MORPHINE SULFATE 10 MG/ML INJ 1ML SDV IV PRN (03:41)
[2017-08-12 05:13] VITALS: BP 106/55
[2017-08-12] MEDS: ALBUTEROL SULF 2.5 MG/0.5ML(0.5%) NEB SOLN NEB SCH ×2 (06:00)
[2017-08-12] MEDS: IPRATROPIUM BROM 0.5 MG/2.5ML INH SOL NEB SCH ×2 (06:00)
[2017-08-12] MEDS: glipiZIDE 5 MG TAB PO SCH (06:33)
[2017-08-12 09:00] VITALS: BP 110/66
== END 2017-08-12 11:10 | disposition home or self-care (01) | DRG 194 ==
LOC: ER 08:54 → EDBD 08:54 → TELE 08:55 → TELE-WESTW 13:40
PROVIDERS: ADMIT Internal Medicine; ATTEND Internal Medicine
DX: I13.0 Hypertensive heart and chronic kidney disease with heart failure and stage 1 through stage 4 chronic kidney disease, or unspecified chronic kidney disease (principal); E43 Unspecified severe protein-calorie malnutrition; E11.22 Type 2 diabetes mellitus with diabetic chronic kidney disease; Z68.43 Body mass index [BMI] 50.0-59.9, adult; L03.115 Cellulitis of right lower limb; E66.01 Morbid (severe) obesity due to excess calories; I50.43 Acute on chronic combined systolic (congestive) and diastolic (congestive) heart failure; I48.91 Unspecified atrial fibrillation; J44.9 Chronic obstructive pulmonary disease, unspecified; I25.10 Atherosclerotic heart disease of native coronary artery without angina pectoris; I25.2 Old myocardial infarction; E78.5 Hyperlipidemia, unspecified; M10.9 Gout, unspecified; N18.9 Chronic kidney disease, unspecified; A49.02 Methicillin resistant Staphylococcus aureus infection, unspecified site; Z80.0 Family history of malignant neoplasm of digestive organs; Z80.1 Family history of malignant neoplasm of trachea, bronchus and lung; Z80.42 Family history of malignant neoplasm of prostate; Z80.3 Family history of malignant neoplasm of breast; Z80.8 Family history of malignant neoplasm of other organs or systems; Z81.8 Family history of other mental and behavioral disorders; Z82.0 Family history of epilepsy and other diseases of the nervous system; Z82.49 Family history of ischemic heart disease and other diseases of the circulatory system; Z82.62 Family history of osteoporosis; Z82.3 Family history of stroke; Z82.5 Family history of asthma and other chronic lower respiratory diseases; Z83.3 Family history of diabetes mellitus; Z85.528 Personal history of other malignant neoplasm of kidney; Z86.14 Personal history of Methicillin resistant Staphylococcus aureus infection; Z90.5 Acquired absence of kidney; Z91.19 Patient's noncompliance with other medical treatment and regimen; Z88.5 Allergy status to narcotic agent; Z90.49 Acquired absence of other specified parts of digestive tract
CPT/HCPCS: 36415; 36600; 71045; 80053; 80061; 81001; 82550; 82805; 82962; 83036; 83605; 83735; 83880; 84484; 85025; 85652; 87040; 87077; 87081; 87086; 87186; 87205; 87400; 93005; 93971; 94640; 94761; 96365; 96375; J1815; J1956; J3490

== ENCOUNTER 2017-11-24 19:50 | Inpatient (IN) | payer MEDICAID, OTHER ==
[~2017-11-24] VITALS: Ht 180.3 cm; Wt 169.3 kg
[2017-11-24] MEDS ORDERED: ACETAMINOPHEN 325 MG TAB PO ONE ×2 (20:28→20:30)
[2017-11-24 21:11] LABS: Hematocrit 45.3 % (41.0-53.0); Hemoglobin 14.8 g/dL (13.5-17.5); Mean Corpuscular Hemoglobin 28.8 pg (28.0-32.0); Mean Corpuscular Hgb Conc. 32.6 g/dL (32.0-36.0); Mean Corpuscular Volume 88.3 fL (80.0-100.0); Platelet Count (auto) 222 10^3/uL (140-450); Red Blood Cells 5.13 10^6/uL (4.5-5.90); Red Cell Distribution Width 14.7 % (11.8-14.3); White Blood Cell 14.4 10^3/uL (4.4-10.8)
[2017-11-24 21:20] LABS: Band Neutrophils % (manual) 0; Basophils % (manual) 0 (0.0-2.0); Blast Cells 0; Eosinophils % (manual) 0 (0-7); Metamyelocytes % 0; Myelocytes % 0; Promyelocytes % 0; Reactive Lymphocytes 0
[2017-11-24 21:25] LABS: Lymphocytes % (manual) 11 (10.0-50.0); Monocytes % (manual) 7 (0-12)
[2017-11-24 21:29] LABS: INR 1.08 (0.9-1.15); Partial Thromboplastin Time 36.2 sec (22.64-33.71); Prothrombin Time 11.8 sec (9.37-12.3)
[2017-11-24 21:31] LABS: Alanine Aminotransferase 12 U/L (16-61); Albumin 2.3 g/dL (3.4-5.0); Anion Gap 11 (5-15); Aspartate Aminotransferase 8 U/L (15-37); BUN/Creatinine Ratio 11.2; Blood Urea Nitrogen 14 mg/dL (7-18); Calcium 8.6 mg/dL (8.5-10.1); Carbon Dioxide 22 mmol/L (21-32); Chloride 97 mmol/L (98-107); GFR African American 78 mL/min; GFR Non-African American 64 mL/min; Glucose 311 mg/dL (74-106); Potassium 4.8 mmol/L (3.5-5.1); Sodium 130 mmol/L (136-145)
[2017-11-24 21:33] LABS: Alkaline Phosphatase 99 U/L (45-117); Bilirubin, Total 0.6 mg/dL (0.2-1.0); Total Protein 7.4 g/dL (6.4-8.2)
[2017-11-25] MEDS ORDERED: cefTRIAXone 1GM/10ml IVPUSH 10 ML IV ONE (00:15)
[2017-11-25] MEDS ORDERED: VANCOMYCIN 1GM/250ML 250 ML IV ONE (00:15)
[2017-11-25] MEDS ORDERED: ACETAMINOPHEN 325 MG TAB PO PRN (02:00)
[2017-11-25] MEDS ORDERED: VANCOMYCIN PER PHARMACY 0 MG IV SCH (02:00)
[2017-11-25] MEDS ORDERED: MORPHINE SULFATE 4 MG/ML SYR/VIAL IV PRN (02:00)
[2017-11-25] MEDS ORDERED: ONDANSETRON HCL 4 MG/2 ML VIAL IV PRN (02:00)
[2017-11-25] MEDS ORDERED: DEXTROSE (50%) 50ML SYRG IV PRN ×2 (02:00→10:30)
[2017-11-25] MEDS ORDERED: ACETAMINOPHEN 325 MG TAB PO ONE (02:45)
[2017-11-25] MEDS ORDERED: SODIUM CHLORIDE 0.9% 1,000 ML IV ONE (03:45)
[2017-11-25] MEDS ORDERED: InsuLIN REG 1unit/0.01ml Soln (100units/ml) IV ONE (03:45)
[2017-11-25] MEDS ORDERED: FUROSEMIDE 40 MG/4 ML VIAL IV ONE (04:30)
[2017-11-25 05:30] VITALS: BP 126/72
[2017-11-25] MEDS: PIPERACILLIN-TAZOB 3.375GM 100 ML IV SCH ×4 (05:40→23:55)
[2017-11-25] MEDS ORDERED: InsuLIN REG 1unit/0.01ml Soln (100units/ml) SC SCH (07:00)
[2017-11-25] MEDS ORDERED: ACCU-CHEK COMFORT CURVE STRIP VI SCH (07:00)
[2017-11-25 08:00] VITALS: BP 134/68
[2017-11-25 08:33] LABS: Basophils # (auto) 0.1 uL; Basophils % (auto) 0.5 % (0.0-2.0); Eosinophils # (auto) 0.1 uL; Eosinophils % (auto) 0.4 % (0.0-7.0); Hematocrit 48.4 % (41.0-53.0); Hemoglobin 16.2 g/dL (13.5-17.5); Lymphocytes # (auto) 1.6 uL; Lymphocytes % (auto) 13.4 % (10.0-50.0); Mean Corpuscular Hemoglobin 29.4 pg (28.0-32.0); Mean Corpuscular Hgb Conc. 33.5 g/dL (32.0-36.0); Mean Corpuscular Volume 87.8 fL (80.0-100.0); Monocytes # (auto) 1.1 uL; Monocytes % (auto) 9.1 % (0.0-12.0); Neutrophils # (auto) 9.4 uL; Neutrophils % (auto) 76.6 % (37.0-80.0); Nucleated Red Blood Cells % 0.2 %; Platelet Count (auto) 193 10^3/uL (140-450); Red Blood Cells 5.51 10^6/uL (4.5-5.90); Red Cell Distribution Width 14.4 % (11.8-14.3); White Blood Cell 12.3 10^3/uL (4.4-10.8)
[2017-11-25 09:13] LABS: Potassium 4.1 mmol/L (3.5-5.1)
[2017-11-25 09:14] LABS: BUN/Creatinine Ratio 12.1; Calcium 8.7 mg/dL (8.5-10.1)
[2017-11-25] MEDS: APIXABAN 5 MG TAB PO SCH ×2 (09:28→21:33)
[2017-11-25] MEDS: ASPirin-EC 81 mg tab PO SCH (09:28)
[2017-11-25] MEDS: VANCOMYCIN 1GM/250ML 250 ML IV SCH ×2 (09:28→16:29)
[2017-11-25] MEDS: GABAPENTIN 300 MG CAP PO SCH ×2 (09:28→21:33)
[2017-11-25] MEDS: SODIUM CHLORIDE 0.9% 1,000 ML IV SCH ×2 (10:20→23:35)
[2017-11-25 10:23] VITALS: BP 134/68
[2017-11-25 11:15] LABS: Urine WBC None Seen /hpf (0 - 3)
[2017-11-25] MEDS: ACCU-CHEK COMFORT CURVE STRIP VI SCH ×3 (11:30→21:34)
[2017-11-25 11:38] LABS: Urine Bacteria NONE SEEN /hpf (None Seen); Urine Blood Negative /uL (Negative); Urine Hyaline Cast FEW /lpf (0 - 2); Urine Specific Gravity 1.009 (1.001-1.035)
[2017-11-25] MEDS: MORPHINE SULFATE 4 MG/ML SYR/VIAL IV PRN ×2 (12:06→20:58)
[2017-11-25] MEDS: InsuLIN REG 1unit/0.01ml Soln (100units/ml) SC SCH ×4 (12:07→22:04)
[2017-11-25 15:18] VITALS: BP 132/80
[2017-11-25 17:29] VITALS: BP 151/72
[2017-11-25 21:30] VITALS: BP 127/74
[2017-11-26] MEDS: VANCOMYCIN 1GM/250ML 250 ML IV SCH ×3 (01:06→23:00)
[2017-11-26 05:00] VITALS: BP 117/62
[2017-11-26] MEDS: PIPERACILLIN-TAZOB 3.375GM 100 ML IV SCH ×3 (05:30→18:07)
[2017-11-26] MEDS ORDERED: FUROSEMIDE 40 MG TAB PO SCH (06:00)
[2017-11-26] MEDS: InsuLIN REG 1unit/0.01ml Soln (100units/ml) SC SCH ×5 (06:15→21:40)
[2017-11-26] MEDS: ACCU-CHEK COMFORT CURVE STRIP VI SCH ×4 (06:15→21:39)
[2017-11-26 07:12] LABS: Calcium 8.5 mg/dL (8.5-10.1); Potassium 3.9 mmol/L (3.5-5.1)
[2017-11-26 07:14] LABS: BUN/Creatinine Ratio 15.5
[2017-11-26 08:00] VITALS: BP 113/59
[2017-11-26 08:30] VITALS: BP 113/59
[2017-11-26] MEDS: ASPirin-EC 81 mg tab PO SCH (11:39)
[2017-11-26] MEDS: GABAPENTIN 300 MG CAP PO SCH ×2 (11:40→21:38)
[2017-11-26] MEDS: APIXABAN 5 MG TAB PO SCH ×2 (11:40→21:38)
[2017-11-26 12:30] VITALS: BP 136/85
[2017-11-26] MEDS: SODIUM CHLORIDE 0.9% 1,000 ML IV SCH (12:55)
[2017-11-26 16:28] VITALS: BP 128/80
[2017-11-26 22:00] VITALS: BP 113/77
[2017-11-26] MEDS: MORPHINE SULFATE 4 MG/ML SYR/VIAL IV PRN (23:10)
[2017-11-27] MEDS: SODIUM CHLORIDE 0.9% 1,000 ML IV SCH (02:15)
[2017-11-27 03:25] VITALS: BP 134/79
[2017-11-27 05:00] VITALS: BP 138/67
[2017-11-27] MEDS: PIPERACILLIN-TAZOB 3.375GM 100 ML IV SCH ×2 (05:30)
[2017-11-27] MEDS: InsuLIN REG 1unit/0.01ml Soln (100units/ml) SC SCH ×5 (06:10→22:00)
[2017-11-27] MEDS: ACCU-CHEK COMFORT CURVE STRIP VI SCH ×4 (06:11→22:00)
[2017-11-27 06:54] LABS: Basophils # (auto) 0.1 uL; Basophils % (auto) 0.6 % (0.0-2.0); Eosinophils # (auto) 0.2 uL; Eosinophils % (auto) 2.1 % (0.0-7.0); Hematocrit 41.4 % (41.0-53.0); Hemoglobin 13.8 g/dL (13.5-17.5); Lymphocytes # (auto) 1.4 uL; Lymphocytes % (auto) 13.2 % (10.0-50.0); Mean Corpuscular Hemoglobin 29.3 pg (28.0-32.0); Mean Corpuscular Hgb Conc. 33.4 g/dL (32.0-36.0); Mean Corpuscular Volume 87.9 fL (80.0-100.0); Monocytes # (auto) 0.9 uL; Monocytes % (auto) 8.3 % (0.0-12.0); Neutrophils # (auto) 8.2 uL; Neutrophils % (auto) 75.8 % (37.0-80.0); Nucleated Red Blood Cells % 0.1 %; Platelet Count (auto) 233 10^3/uL (140-450); Red Blood Cells 4.71 10^6/uL (4.5-5.90); Red Cell Distribution Width 14.6 % (11.8-14.3); White Blood Cell 10.9 10^3/uL (4.4-10.8)
[2017-11-27 07:09] LABS: BUN/Creatinine Ratio 13.9; Calcium 8.6 mg/dL (8.5-10.1); Potassium 3.9 mmol/L (3.5-5.1)
[2017-11-27 07:11] LABS: Bilirubin, Total 0.5 mg/dL (0.2-1.0)
[2017-11-27 08:44] VITALS: BP 92/55
[2017-11-27] MEDS ORDERED: FUROSEMIDE 20 MG/2 ML VIAL IV ONE (10:30)
[2017-11-27] MEDS: cefTRIAXone 1GM/10ml IVPUSH 10 ML IV SCH (10:36)
[2017-11-27] MEDS: GABAPENTIN 300 MG CAP PO SCH ×2 (10:37→22:02)
[2017-11-27] MEDS: APIXABAN 5 MG TAB PO SCH ×2 (10:37→22:02)
[2017-11-27] MEDS: ASPirin-EC 81 mg tab PO SCH (10:37)
[2017-11-27] MEDS: VANCOMYCIN 1GM/250ML 250 ML IV SCH ×2 (10:59→23:23)
[2017-11-27 13:00] VITALS: BP 107/61
[2017-11-27 17:00] VITALS: BP 139/75
[2017-11-27 22:00] VITALS: BP 156/93
[2017-11-27] MEDS: HYDROcodone-ACET 5/325MG TAB PO PRN (23:42)
[2017-11-28 05:00] VITALS: BP 117/71
[2017-11-28] MEDS: InsuLIN REG 1unit/0.01ml Soln (100units/ml) SC SCH ×4 (07:01→23:19)
[2017-11-28] MEDS: ACCU-CHEK COMFORT CURVE STRIP VI SCH ×4 (07:01→23:20)
[2017-11-28 07:32] LABS: Basophils # (auto) 0.1 uL; Basophils % (auto) 0.7 % (0.0-2.0); Eosinophils # (auto) 0.4 uL; Eosinophils % (auto) 3.6 % (0.0-7.0); Hematocrit 42.1 % (41.0-53.0); Hemoglobin 14.3 g/dL (13.5-17.5); Lymphocytes # (auto) 2.2 uL; Lymphocytes % (auto) 19.8 % (10.0-50.0); Mean Corpuscular Hemoglobin 29.5 pg (28.0-32.0); Mean Corpuscular Hgb Conc. 33.9 g/dL (32.0-36.0); Mean Corpuscular Volume 86.9 fL (80.0-100.0); Monocytes # (auto) 0.8 uL; Monocytes % (auto) 7.7 % (0.0-12.0); Neutrophils # (auto) 7.5 uL; Neutrophils % (auto) 68.2 % (37.0-80.0); Nucleated Red Blood Cells % 0.1 %; Platelet Count (auto) 293 10^3/uL (140-450); Red Blood Cells 4.85 10^6/uL (4.5-5.90); Red Cell Distribution Width 14.5 % (11.8-14.3); White Blood Cell 10.9 10^3/uL (4.4-10.8)
[2017-11-28 08:00] VITALS: BP 120/76
[2017-11-28 08:14] VITALS: BP 120/76
[2017-11-28 08:35] LABS: Albumin 2.2 g/dL (3.4-5.0); BUN/Creatinine Ratio 16.3; Bilirubin, Total 0.2 mg/dL (0.2-1.0); Calcium 8.2 mg/dL (8.5-10.1); Total Protein 6.1 g/dL (6.4-8.2)
[2017-11-28] MEDS: HYDROcodone-ACET 5/325MG TAB PO PRN ×2 (08:51→21:51)
[2017-11-28] MEDS: cefTRIAXone 1GM/10ml IVPUSH 10 ML IV SCH (08:51)
[2017-11-28] MEDS: VANCOMYCIN 1,250 MG in D5W 5% 250 ML IV SCH ×2 (08:51→21:48)
[2017-11-28] MEDS: GABAPENTIN 100 MG CAP PO SCH ×2 (09:20→23:14)
[2017-11-28] MEDS: ASPirin-EC 81 mg tab PO SCH (09:20)
[2017-11-28] MEDS: APIXABAN 5 MG TAB PO SCH (09:20)
[2017-11-28 14:51] VITALS: BP 118/74
[2017-11-28] MEDS ORDERED: LIDOCAINE 1% (LOCAL ANESTH.) PF 5ml SDV ID ONE (15:45)
[2017-11-28 17:08] VITALS: BP 127/80
[2017-11-28 22:00] VITALS: BP_SYST 141
[2017-11-28] MEDS: SODIUM CHLOR 0.9% PF (SALINE LOCK) 10ML VIAL/SYR IV SCH (22:00)
[2017-11-28] MEDS: PRO-STAT 64 30ML PO SCH (22:00)
[2017-11-29 05:00] VITALS: BP 147/84
[2017-11-29] MEDS: InsuLIN REG 1unit/0.01ml Soln (100units/ml) SC SCH ×4 (07:00→22:59)
[2017-11-29] MEDS: ACCU-CHEK COMFORT CURVE STRIP VI SCH ×4 (07:09→22:00)
[2017-11-29] MEDS ORDERED: ceFAZolin 1GM/100ML 100 ML IV ONE (08:08)
[2017-11-29] MEDS ORDERED: ONDANSETRON HCL 4 MG/2 ML VIAL ONE (08:12)
[2017-11-29] MEDS ORDERED: PROPOFOL 10 MG/ML 20 ML IV ONE (08:12)
[2017-11-29] MEDS ORDERED: fentaNYL CITRATE 100 MCG/2 ML VL ONE (08:12)
[2017-11-29] MEDS ORDERED: MIDAZOLAM HCL 1MG/1ML-2 ML VIAL ONE (08:12)
[2017-11-29] MEDS ORDERED: HYDROmorphone HCL 2 MG/ML VL IV PRN (08:45)
[2017-11-29] MEDS ORDERED: LABETALOL HCL 5 MG/ML 4ML SYRINGE IV PRN (08:45)
[2017-11-29] MEDS ORDERED: ONDANSETRON HCL 4 MG/2 ML VIAL IV ONE (08:45)
[2017-11-29] MEDS ORDERED: KETOROLAC TROMETH 30 MG/ML 1ML VIAL IV ONE (08:45)
[2017-11-29] MEDS ORDERED: MIDAZOLAM HCL 1MG/1ML-2 ML VIAL IV PRN (08:45)
[2017-11-29] MEDS ORDERED: ePHEDrine SULFATE 50 MG/ML AMP IV PRN (08:45)
[2017-11-29] MEDS ORDERED: LABETALOL HCL 5 MG/ML ML 20ML VIAL IV ONE (08:45)
[2017-11-29] MEDS ORDERED: MORPHINE SULFATE 4 MG/ML SYR/VIAL IV PRN (08:45)
[2017-11-29 08:47] VITALS: BP 143/76
[2017-11-29] MEDS ORDERED: MORPHINE SULFATE 4 MG/ML SYR/VIAL IV ONE (10:00)
[2017-11-29] MEDS: SODIUM CHLOR 0.9% PF (SALINE LOCK) 10ML VIAL/SYR IV SCH ×2 (10:00→21:59)
[2017-11-29] MEDS: PRO-STAT 64 30ML PO SCH ×2 (10:00→22:00)
[2017-11-29] MEDS: HYDROcodone-ACET 5/325MG TAB PO PRN (10:03)
[2017-11-29] MEDS: VANCOMYCIN 1,250 MG in D5W 5% 250 ML IV SCH ×2 (11:21→21:58)
[2017-11-29] MEDS: MORPHINE SULFATE 4 MG/ML SYR/VIAL IV PRN ×3 (11:22→22:01)
[2017-11-29] MEDS: cefTRIAXone 1GM/10ml IVPUSH 10 ML IV SCH (11:22)
[2017-11-29] MEDS: GABAPENTIN 100 MG CAP PO SCH ×2 (11:23→21:59)
[2017-11-29] MEDS: ASPirin-EC 81 mg tab PO SCH (11:23)
[2017-11-29 13:05] VITALS: BP 141/84
[2017-11-29 14:05] LABS: Basophils # (auto) 0.1 uL; Basophils % (auto) 0.8 % (0.0-2.0); Eosinophils # (auto) 0.4 uL; Eosinophils % (auto) 3.3 % (0.0-7.0); Hematocrit 39.9 % (41.0-53.0); Lymphocytes # (auto) 1.8 uL; Lymphocytes % (auto) 16.7 % (10.0-50.0); Mean Corpuscular Hemoglobin 28.4 pg (28.0-32.0); Mean Corpuscular Hgb Conc. 32.6 g/dL (32.0-36.0); Mean Corpuscular Volume 87.3 fL (80.0-100.0); Monocytes # (auto) 0.7 uL; Monocytes % (auto) 6.7 % (0.0-12.0); Neutrophils # (auto) 7.9 uL; Neutrophils % (auto) 72.5 % (37.0-80.0); Platelet Count (auto) 292 10^3/uL (140-450); Red Blood Cells 4.57 10^6/uL (4.5-5.90); Red Cell Distribution Width 14.4 % (11.8-14.3); White Blood Cell 10.9 10^3/uL (4.4-10.8)
[2017-11-29 14:28] LABS: BUN/Creatinine Ratio 14.9; Bilirubin, Total 0.2 mg/dL (0.2-1.0); Calcium 8.5 mg/dL (8.5-10.1); Potassium 4.3 mmol/L (3.5-5.1); Total Protein 6.8 g/dL (6.4-8.2)
[2017-11-29 16:59] VITALS: BP 141/75
[2017-11-29 20:00] VITALS: BP 130/67
[2017-11-29 22:00] VITALS: BP 130/67
[2017-11-30] MEDS: HYDROcodone-ACET 5/325MG TAB PO PRN (00:10)
[2017-11-30 05:00] VITALS: BP 144/86
[2017-11-30] MEDS: ACCU-CHEK COMFORT CURVE STRIP VI SCH ×2 (06:00→12:14)
[2017-11-30] MEDS: InsuLIN REG 1unit/0.01ml Soln (100units/ml) SC SCH ×2 (06:01→12:30)
[2017-11-30 07:39] LABS: BUN/Creatinine Ratio 16.3; Bilirubin, Total 0.2 mg/dL (0.2-1.0); Calcium 8.7 mg/dL (8.5-10.1); Potassium 4.2 mmol/L (3.5-5.1); Total Protein 6.8 g/dL (6.4-8.2)
[2017-11-30 07:40] LABS: Basophils # (auto) 0.1 uL; Basophils % (auto) 0.9 % (0.0-2.0); Eosinophils # (auto) 0.6 uL; Eosinophils % (auto) 5.8 % (0.0-7.0); Hematocrit 38.9 % (41.0-53.0); Hemoglobin 13.1 g/dL (13.5-17.5); Lymphocytes # (auto) 2.1 uL; Lymphocytes % (auto) 21.6 % (10.0-50.0); Mean Corpuscular Hemoglobin 29.4 pg (28.0-32.0); Mean Corpuscular Hgb Conc. 33.6 g/dL (32.0-36.0); Mean Corpuscular Volume 87.5 fL (80.0-100.0); Monocytes # (auto) 0.8 uL; Neutrophils # (auto) 6.1 uL; Neutrophils % (auto) 63.7 % (37.0-80.0); Nucleated Red Blood Cells % 0.2 %; Platelet Count (auto) 193 10^3/uL (140-450); Red Blood Cells 4.45 10^6/uL (4.5-5.90); Red Cell Distribution Width 14.3 % (11.8-14.3); White Blood Cell 9.5 10^3/uL (4.4-10.8)
[2017-11-30 09:00] VITALS: BP 138/64
[2017-11-30] MEDS: cefTRIAXone 1GM/10ml IVPUSH 10 ML IV SCH (09:28)
[2017-11-30] MEDS: VANCOMYCIN 1,250 MG in D5W 5% 250 ML IV SCH (09:29)
[2017-11-30] MEDS: ASPirin-EC 81 mg tab PO SCH (10:07)
[2017-11-30] MEDS: SODIUM CHLOR 0.9% PF (SALINE LOCK) 10ML VIAL/SYR IV SCH (10:08)
[2017-11-30] MEDS: PRO-STAT 64 30ML PO SCH (10:08)
[2017-11-30] MEDS: GABAPENTIN 100 MG CAP PO SCH (10:08)
[2017-11-30 11:19] VITALS: BP 92/55
[2017-11-30] MEDS: MORPHINE SULFATE 4 MG/ML SYR/VIAL IV PRN (12:14)
[2017-11-30 12:50] VITALS: BP 143/79
== END 2017-11-30 13:50 | disposition home or self-care (01) | DRG 720 ==
LOC: EDBD 19:50 → ER 19:50 → TELE 19:51 → TELE-WESTW 11-25 05:02
PROVIDERS: ADMIT Nurse Practitioner Family; ATTEND Internal Medicine
PROC: 02HV33Z Insertion of Infusion Device into Superior Vena Cava, Percutaneous Approach (ICD-10-PCS; 2017-11-24)
PROC: 0Y9N0ZZ Drainage of Left Foot, Open Approach (ICD-10-PCS; 2017-11-29)
PROC: 0JBR0ZZ Excision of Left Foot Subcutaneous Tissue and Fascia, Open Approach (ICD-10-PCS; principal; 2017-11-29 08:21)
DX: A41.9 Sepsis, unspecified organism (principal); E43 Unspecified severe protein-calorie malnutrition; I50.33 Acute on chronic diastolic (congestive) heart failure; E11.22 Type 2 diabetes mellitus with diabetic chronic kidney disease; E11.621 Type 2 diabetes mellitus with foot ulcer; I48.91 Unspecified atrial fibrillation; L03.115 Cellulitis of right lower limb; L02.612 Cutaneous abscess of left foot; E11.65 Type 2 diabetes mellitus with hyperglycemia; E87.1 Hypo-osmolality and hyponatremia; I13.0 Hypertensive heart and chronic kidney disease with heart failure and stage 1 through stage 4 chronic kidney disease, or unspecified chronic kidney disease; E66.01 Morbid (severe) obesity due to excess calories; E03.9 Hypothyroidism, unspecified; E78.5 Hyperlipidemia, unspecified; I25.10 Atherosclerotic heart disease of native coronary artery without angina pectoris; I25.2 Old myocardial infarction; J44.9 Chronic obstructive pulmonary disease, unspecified; L03.031 Cellulitis of right toe; L03.116 Cellulitis of left lower limb; L97.519 Non-pressure chronic ulcer of other part of right foot with unspecified severity; M10.9 Gout, unspecified; N18.9 Chronic kidney disease, unspecified; Z79.4 Long term (current) use of insulin; Z80.0 Family history of malignant neoplasm of digestive organs; Z85.528 Personal history of other malignant neoplasm of kidney; Z87.442 Personal history of urinary calculi; Z87.891 Personal history of nicotine dependence; Z90.5 Acquired absence of kidney; Z91.19 Patient's noncompliance with other medical treatment and regimen; Z86.14 Personal history of Methicillin resistant Staphylococcus aureus infection; Z88.5 Allergy status to narcotic agent; Z90.49 Acquired absence of other specified parts of digestive tract; Z82.3 Family history of stroke; Z82.49 Family history of ischemic heart disease and other diseases of the circulatory system; Z83.3 Family history of diabetes mellitus; Z79.84 Long term (current) use of oral hypoglycemic drugs; Z79.899 Other long term (current) drug therapy; Z68.43 Body mass index [BMI] 50.0-59.9, adult
CPT/HCPCS: 36415; 36569; 71045; 73620; 78315; 80048; 80053; 80202; 81001; 82962; 83605; 83735; 83880; 84484; 85007; 85025; 85027; 85610; 85730; 86850; 86900; 86901; 87040; 87070; 87075; 87076; 87077; 87081; 87086; 87186; 87205; 93926; 96365; 96375; J0690; J1815; J2250; J2405; J2543; J2704; J7060

== ENCOUNTER 2018-01-15 20:40 | Inpatient (IN) | payer MEDICAID, OTHER ==
[~2018-01-15] VITALS: Ht 185.4 cm; Wt 158.8 kg
[2018-01-15] MEDS ORDERED: ACETAMINOPHEN 325 MG TAB PO ONE (21:00)
[2018-01-15 21:18] LABS: Basophils # (auto) 0.1 uL; Basophils % (auto) 0.5 % (0.0-2.0); Eosinophils # (auto) 0 uL; Hematocrit 42.4 % (41.0-53.0); Lymphocytes # (auto) 1.5 uL; Lymphocytes % (auto) 8.1 % (10.0-50.0); Mean Corpuscular Hemoglobin 28.5 pg (28.0-32.0); Mean Corpuscular Hgb Conc. 33.1 g/dL (32.0-36.0); Mean Corpuscular Volume 85.9 fL (80.0-100.0); Monocytes # (auto) 0.7 uL; Monocytes % (auto) 3.6 % (0.0-12.0); Neutrophils # (auto) 16.7 uL; Neutrophils % (auto) 87.8 % (37.0-80.0); Nucleated Red Blood Cells % 0.1 %; Platelet Count (auto) 200 10^3/uL (140-450); Red Blood Cells 4.93 10^6/uL (4.5-5.90); Red Cell Distribution Width 15.4 % (11.8-14.3)
[2018-01-15] MEDS ORDERED: cefTRIAXone 1GM/10ml IVPUSH 10 ML IV ONE (21:30)
[2018-01-15 21:48] LABS: Alanine Aminotransferase 17 U/L (16-61); Albumin 2.8 g/dL (3.4-5.0); Alkaline Phosphatase 99 U/L (45-117); Anion Gap 11 (5-15); Aspartate Aminotransferase 12 U/L (15-37); BUN/Creatinine Ratio 17.3; Bilirubin, Total 0.6 mg/dL (0.2-1.0); Blood Urea Nitrogen 26 mg/dL (7-18); Calcium 8.8 mg/dL (8.5-10.1); Carbon Dioxide 22 mmol/L (21-32); Chloride 99 mmol/L (98-107); GFR African American 63 mL/min; GFR Non-African American 52 mL/min; Glucose 141 mg/dL (74-106); Magnesium 2.1 mg/dL (1.6-2.6); Potassium 3.8 mmol/L (3.5-5.1); Sodium 132 mmol/L (136-145); Total Protein 7.3 g/dL (6.4-8.2)
[2018-01-15 22:11] LABS: Urine Bacteria NONE SEEN /hpf (None Seen); Urine Blood Negative /uL (Negative); Urine Mucus FEW (None Seen); Urine Specific Gravity 1.029 (1.001-1.035); Urine WBC 1 /hpf (0 - 3)
[2018-01-15 22:49] LABS: Alcohol, Urine < 3.0 mg/dL (0-5); Amphetamine Screen, Urine POSITIVE (NEGATIVE); Barbiturate Scree,Urine NEGATIVE (NEGATIVE); Benzodiazephine Screen, Urine NEGATIVE (NEGATIVE); Cannabinoid Screen, Urine NEGATIVE (NEGATIVE); Cocaine Screen, Urine NEGATIVE (NEGATIVE); Opiate Scree,Urine NEGATIVE (NEGATIVE); Phencyclidine Screen, Urine NEGATIVE (NEGATIVE)
[2018-01-15] MEDS ORDERED: VANCOMYCIN 1GM/250ML 250 ML IV ONE (23:15)
[2018-01-15] MEDS ORDERED: SODIUM CHLORIDE 0.9% 3,000 ML IV ONE (23:15)
[2018-01-16] MEDS ORDERED: ACETAMINOPHEN 650 mg PER 20 mL UD GT ONE
[2018-01-16] MEDS ORDERED: VANCOMYCIN PER PHARMACY 0 MG IV SCH (05:00)
[2018-01-16] MEDS ORDERED: ONDANSETRON HCL 4 MG/2 ML VIAL IV PRN (05:00)
[2018-01-16] MEDS ORDERED: ACETAMINOPHEN 325 MG TAB PO PRN (05:00)
[2018-01-16] MEDS ORDERED: DEXTROSE (50%) 50ML SYRG IV PRN (05:00)
[2018-01-16] MEDS ORDERED: TEMAZEPAM 15 MG CAP PO PRN (05:00)
[2018-01-16] MEDS: ACCU-CHEK COMFORT CURVE STRIP VI SCH ×4 (06:00→21:46)
[2018-01-16] MEDS: InsuLIN REG 1unit/0.01ml Soln (100units/ml) SC SCH ×4 (06:00→21:46)
[2018-01-16 06:30] LABS: Albumin 2.5 g/dL (3.4-5.0); Calcium 8.3 mg/dL (8.5-10.1); Potassium 3.5 mmol/L (3.5-5.1)
[2018-01-16 06:32] LABS: BUN/Creatinine Ratio 18.1
[2018-01-16 06:35] LABS: Bilirubin, Total 0.5 mg/dL (0.2-1.0); Total Protein 6.8 g/dL (6.4-8.2)
[2018-01-16] MEDS: HYDROcodone-ACET 5/325MG TAB PO PRN ×3 (07:40→21:38)
[2018-01-16 08:15] VITALS: BP 155/75
[2018-01-16] MEDS: VANCOMYCIN 1GM/250ML 250 ML IV SCH ×2 (08:37→19:24)
[2018-01-16] MEDS: FUROSEMIDE 40 MG TAB PO SCH (08:38)
[2018-01-16] MEDS: GEMFIBROZIL 600 MG TAB PO SCH ×2 (08:38→21:37)
[2018-01-16] MEDS: ENOXAPARIN SOD 40 MG/0.4 ML SYRINGE SC SCH ×2 (08:38→21:46)
[2018-01-16] MEDS: FAMOTIDINE 20 MG TAB PO SCH ×2 (08:38→21:37)
[2018-01-16] MEDS: LOSARTAN POTASSIUM 50 MG TAB PO SCH (08:39)
[2018-01-16] MEDS: ATENOLOL 50 MG TAB PO SCH (08:39)
[2018-01-16] MEDS ORDERED: ENOXAPARIN SOD 40 MG/0.4 ML SYRINGE SC SCH (10:00)
[2018-01-16 11:57] VITALS: BP 126/76
[2018-01-16 16:18] VITALS: BP 130/84
[2018-01-16] MEDS ORDERED: cefTRIAXone 1GM/10ml IVPUSH 10 ML IV SCH (21:00)
[2018-01-16 22:00] VITALS: BP 126/71
[2018-01-17] MEDS: VANCOMYCIN 1GM/250ML 250 ML IV SCH ×2 (00:26→08:00)
[2018-01-17 05:00] VITALS: BP 141/92
[2018-01-17] MEDS: ACCU-CHEK COMFORT CURVE STRIP VI SCH ×2 (06:08→12:00)
[2018-01-17] MEDS: InsuLIN REG 1unit/0.01ml Soln (100units/ml) SC SCH ×2 (06:09→12:00)
[2018-01-17 08:22] VITALS: BP 120/70
[2018-01-17 10:15] VITALS: BP 120/70
[2018-01-17] MEDS: ENOXAPARIN SOD 40 MG/0.4 ML SYRINGE SC SCH (10:15)
[2018-01-17] MEDS: FAMOTIDINE 20 MG TAB PO SCH (10:15)
[2018-01-17] MEDS: GEMFIBROZIL 600 MG TAB PO SCH (10:16)
[2018-01-17] MEDS: LOSARTAN POTASSIUM 50 MG TAB PO SCH (10:16)
[2018-01-17] MEDS: ATENOLOL 50 MG TAB PO SCH (10:17)
[2018-01-17] MEDS: FUROSEMIDE 40 MG TAB PO SCH (10:17)
[2018-01-17 12:13] VITALS: BP 121/85
[2018-01-17] MEDS ORDERED: VANCOMYCIN 1GM/250ML 250 ML IV SCH (18:00)
== END 2018-01-17 14:05 | disposition home or self-care (01) | DRG 720 ==
LOC: EDBD 20:40 → ER 20:49 → OVERFLOW 20:50 → CENTRAL 01-16 07:32
PROVIDERS: ADMIT Nurse Practitioner; ATTEND Internal Medicine
DX: A41.9 Sepsis, unspecified organism (principal); E43 Unspecified severe protein-calorie malnutrition; E11.22 Type 2 diabetes mellitus with diabetic chronic kidney disease; E11.621 Type 2 diabetes mellitus with foot ulcer; I48.91 Unspecified atrial fibrillation; I50.9 Heart failure, unspecified; I13.0 Hypertensive heart and chronic kidney disease with heart failure and stage 1 through stage 4 chronic kidney disease, or unspecified chronic kidney disease; E87.1 Hypo-osmolality and hyponatremia; L03.115 Cellulitis of right lower limb; L03.116 Cellulitis of left lower limb; E66.01 Morbid (severe) obesity due to excess calories; E78.5 Hyperlipidemia, unspecified; F15.10 Other stimulant abuse, uncomplicated; F17.200 Nicotine dependence, unspecified, uncomplicated; I25.10 Atherosclerotic heart disease of native coronary artery without angina pectoris; J44.9 Chronic obstructive pulmonary disease, unspecified; K21.9 Gastro-esophageal reflux disease without esophagitis; L97.429 Non-pressure chronic ulcer of left heel and midfoot with unspecified severity; S91.302A Unspecified open wound, left foot, initial encounter; X58.XXXA Exposure to other specified factors, initial encounter; L97.529 Non-pressure chronic ulcer of other part of left foot with unspecified severity; M10.9 Gout, unspecified; N18.9 Chronic kidney disease, unspecified; Z80.1 Family history of malignant neoplasm of trachea, bronchus and lung; Z80.3 Family history of malignant neoplasm of breast; Z80.42 Family history of malignant neoplasm of prostate; Z80.8 Family history of malignant neoplasm of other organs or systems; Z81.8 Family history of other mental and behavioral disorders; Z82.0 Family history of epilepsy and other diseases of the nervous system; Z82.49 Family history of ischemic heart disease and other diseases of the circulatory system; Z82.5 Family history of asthma and other chronic lower respiratory diseases; Z82.62 Family history of osteoporosis; Z83.3 Family history of diabetes mellitus; Z85.528 Personal history of other malignant neoplasm of kidney; Z91.19 Patient's noncompliance with other medical treatment and regimen; Z82.3 Family history of stroke; Z68.42 Body mass index [BMI] 45.0-49.9, adult; Z88.5 Allergy status to narcotic agent; Z90.49 Acquired absence of other specified parts of digestive tract; Y93.89 Activity, other specified; Y92.89 Other specified places as the place of occurrence of the external cause; Y99.8 Other external cause status
CPT/HCPCS: 36415; 71045; 73700; 80053; 80202; 80307; 81001; 82962; 83605; 83735; 83880; 84484; 85025; 87040; 87077; 87186; 87205; 93005; 93970; 96361; 96365; 96375; G0378; J1815